=== PATIENT | female | born 1990 | race Caucasian/White ===

== ENCOUNTER 2017-01-08 10:12 | Emergency (ER) | payer OTHER ==
[2017-01-08 10:24] VITALS: O2SAT 96
[2017-01-08] MEDS ORDERED: TYLENOL 325 MG PO STA (10:40)
[2017-01-08] MEDS ORDERED: TYLENOL 325 MG ONE (10:42)
--- NOTE | 2017-01-08 10:47 | ERPHSYRPT ---
- History of Present Illness Time Seen by Provider: 01/08/17 10:30 Historian: patient Exam Limitations: clinical condition Patient Subjective Stated Complaint: abd pain Triage Nursing Assessment: states was at work getting a resident up and 'i dropped pt and twisted when i did' incident happened at 0930 and at 1000 when she got back into her car she had sudden onset of pain to rt lower quad and down into her groin when she twists. no bruising or swelling noted. 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 DENIES FALL, NUMBNESS, TINGLING OR WEAKNESS IN EXTREMITIES. DENIES VAGINAL BLEEDING, PELVIC CRAMPING. Timing/Duration: today Activities at Onset: other (LIFTING RESIDENT) Quality: throbbing Abdominal Pain Onset Location: RLQ, generalized abdomen, other (FLANK) Severity of Pain-Max: moderate Severity of Pain-Current: moderate Modifying Factors: Improves With: position, other (BENDING, TWISTING) Previous symptoms: no prior history Allergies/Adverse Reactions: amoxicillin [Amoxicillin] Allergy (Mild, Verified 01/08/17 10:24) Home Medications: Vits W-Ca,Fe,FA(<1Mg) [] 1 each PO DAILY 01/08/17 [History] Hx Tetanus, Diphtheria Vaccination/Date Given: Yes Hx Influenza Vaccination/Date Given: No Hx Pneumococcal Vaccination/Date Given: No Immunizations Up to Date: Yes - Review of Systems Constitutional: No Fever, No Chills Eyes: No Symptoms Ears, Nose, & Throat: No Symptoms Respiratory: No Symptoms, No Cough, No Dyspnea Cardiac: No Symptoms, No Chest Pain, No Edema, No Syncope Abdominal/Gastrointestinal: Abdominal Pain, No Nausea, No Vomiting, No Diarrhea Genitourinary Symptoms: Flank Pain, No Dysuria Musculoskeletal: Back Pain, Other (RIGHT FLANK PAIN, RIGHT GROIN PAIN), No Neck Pain Skin: No Rash Neurological: No Dizziness, No Focal Weakness, No Sensory Changes Psychological: No Symptoms Endocrine: No Symptoms All Other Systems: Reviewed and Negative - Past Medical History Pertinent Past Medical History: No Neurological History: Migraines - Past Surgical History Past Surgical History: Yes Female Surgical History: Other Other Surgical History: d/c - Social History Smoking Status: Never smoker Exposure to second hand smoke: No Drug Use: none Patient Lives Alone: No Significant Family History: MOTHER - Female History Hx Now: No Expected Date of Delivery: 08/07/17 - Nursing Vital Signs Nursing Vital Signs: Initial Vital Signs Temperature 98.4 F Temperature Source Oral Pulse Rate 98 Respiratory Rate 18 Blood Pressure [Right Arm] 149/83 Pain Intensity 7 - Physical Exam General Appearance: no apparent distress, alert Eye Exam: PERRL/EOMI, eyes nml inspection Neck Exam: normal inspection, non-tender, supple, full range of motion Respiratory Exam: normal breath sounds, lungs clear, No respiratory distress Cardiovascular Exam: regular rate/rhythm, normal heart sounds Gastrointestinal/Abdomen Exam: soft, normal bowel sounds, tenderness (RIGHT LOWER QUAD TENDERNESS, NO GUARDING OR REBOUND TENDERNESS), No mass Back Exam: normal inspection, normal range of motion, No CVA tenderness, No vertebral tenderness Extremity Exam: normal inspection, normal range of motion, pelvis stable Neurologic Exam: alert, oriented x 3, cooperative, normal mood/affect, nml cerebellar function, sensation nml, No motor deficits Skin Exam: normal color, warm, dry SpO2 Interpretation: normal SpO2: 96 Oxygen Delivery: Room Air - Radiology Ultrasound Exam OB Ultrasound: discussed w/radiologist (ABDOMINAL ULTRASOUND C/W INTRAUTERINE 10 WEEKS, 6 DAYS HEART RATE 160,) Ordered Tests: Active Orders 24 hr Category Date Time Status Clean Catch Urine Specimen STAT Care 01/08/17 10:39 Ordered OB <14 WKS 1ST GESTATION [US] Stat Exams 01/08/17 10:40 Ordered UA Stat Lab 01/08/17 10:39 Uncollected Medication Summary Discontinued Medications Generic Name Dose Route Start Last Admin Trade Name Freq PRN Reason Stop Dose Admin Acetaminophen 650 mg 01/08/17 10:40 Tylenol 325 Mg PO 01/08/17 10:41 STAT STA - Progress Progress Note: 01/08/17 10:55 PATIENT ADMINISTERED TYLENOL 650MG ORALLY Counseled pt/family regarding: lab results, diagnosis, need for follow-up, rad results - Departure Time of Disposition: 11:08 Departure Disposition: Home Clinical Impression: ACUTE ABDOMINAL WALL STRAIN, Condition: Stable Critical Care Time: No Additional Instructions: TYLENOL EVERY 4 HOURS FOR PAIN NEEDED. FOLLOWUP WITH YOUR FAMILY PHYSICIAN IN 1 WEEK. WORK RESTRICTION, NO LIFTING FOR 1 WEEK FOR 1 WEEK.
[2017-01-08 10:48] LABS: Collection Type CLEAN CATCH
[2017-01-08 10:49] LABS: COMPLETE URINE MICROSCOPIC? YES
[2017-01-08 10:54] LABS: Bacteria FEW /HPF (NEGATIVE); Epithelial Cells MODERATE /HPF (FEW); Mucus SLIGHT /HPF (NEGATIVE); WBC 0-2 /HPF (0-5)
[2017-01-08 11:12] VITALS: BP 126/88; PULSE 75
--- NOTE | 2017-01-08 11:16 | XRAY ---
Indication: Pain after heavy lifting. Two-dimensional transabdominal early OB ultrasound performed. Comparison: December 13, 2016. Again there is a single intrauterine gestational sac with presence of a single pole measuring today 9 weeks 6 days. heart rate 171 bpm. No abnormal subchorionic fluid collection. Left and right ovaries unremarkable. No suspicious adnexal mass or free fluid. Impression: Again single viable intrauterine today measuring 9 weeks 6 days. No new/acute findings.
== END 2017-01-08 11:20 | disposition home or self-care (01) ==
LOC: ED 10:12
DX: O26.891 Other specified pregnancy related conditions, first trimester (principal); R10.9 Unspecified abdominal pain; X50.0XXA Overexertion from strenuous movement or load, initial encounter; Y93.F2 Activity, caregiving, lifting; Y92.129 Unspecified place in nursing home as the place of occurrence of the external cause
CPT/HCPCS: 76801; 81000; 99284; A9270-GY

== ENCOUNTER → 2017-05-09 | Emergency (ER) | payer OTHER ==
[~2017-05-09] MED LIST: ACELLULAR PERTUSSIS VACCINE IM ONE; DIPHTHERIA TOXOID IM ONE; TETANUS TOXOID IM ONE
== END ==
LOC: ED 13:23
PROC: 0HQNXZZ Repair Left Foot Skin, External Approach (ICD-10-PCS; principal; 2017-05-09)
DX: S91.111A Laceration without foreign body of right great toe without damage to nail, initial encounter (principal); W26.8XXA Contact with other sharp object(s), not elsewhere classified, initial encounter; Z33.1 Pregnant state, incidental; Z3A.28 28 weeks gestation of pregnancy
CPT/HCPCS: 12001; 90471; 90715; 99283

== ENCOUNTER 2018-06-30 20:00 | Emergency (ER) | payer OTHER ==
[2018-06-30] MEDS ORDERED: Zofran 4 MG/2 ML VIAL IV STA (20:17)
[2018-06-30] MEDS ORDERED: Sodium Chloride 0.9% 1000 ML 1,000 ML IV STA (20:17)
[2018-06-30] MEDS ORDERED: TORAdol 30 mg Injection IV ONE (20:18)
--- NOTE | 2018-06-30 20:25 | ERPHSYRPT ---
- History of Present Illness Time Seen by Provider: 06/30/18 20:10 Source: patient Exam Limitations: no limitations Patient Subjective Stated Complaint: fever, headache, backache, N&V, both sides of neck feels "tight" Triage Nursing Assessment: Pt A&O x3, T 102.8, c/o of headache, backache, N&V, both sides of neck feel tight, denies sore throat, fever, rates pain 6/10, denies chest pain, no abdominal pain, pulses normal Physician History: Pt is c/o fever (104.5F) headaches, back pain, nausea, vomiting, started at 13: 00 PM today. She denies cough, SOB, chest pain, abd. pain, diarrhea, rashes, sore throat, other complaints. She took 650 mg Tylenol at 18:00 PM. Timing/Duration: today Fever Severity: severe Fever Therapy EXECUTIVE STAFF ASSISTANT: Acetaminophen Associated Symptoms: headache, nausea/vomiting Allergies/Adverse Reactions: amoxicillin [Amoxicillin] Allergy (Mild, Verified 06/30/18 20:13) Hx Tetanus, Diphtheria Vaccination/Date Given: Yes Hx Influenza Vaccination/Date Given: No Hx Pneumococcal Vaccination/Date Given: No - Review of Systems Constitutional: Fever, Chills Eyes: No Symptoms Ears, Nose, & Throat: No Symptoms Abdominal/Gastrointestinal: Nausea, Vomiting Neurological: Headache All Other Systems: Reviewed and Negative - Past Medical History Pertinent Past Medical History: Yes Neurological History: Migraines ENT History: No Pertinent History Cardiac History: No Pertinent History Respiratory History: No Pertinent History Endocrine Medical History: No Pertinent History Musculoskeletal History: No Pertinent History GI Medical History: GERD History: No Pertinent History Psycho-Social History: No Pertinent History Female Reproductive Disorders: Menstrual Problems, Other - Past Surgical History Past Surgical History: Yes Neuro Surgical History: No Pertinent History Cardiac: No Pertinent History Respiratory: No Pertinent History Gastrointestinal: No Pertinent History Genitourinary: No Pertinent History Musculoskeletal: No Pertinent History Female Surgical History: Tubal Ligation, Other Other Surgical History: d/c - Social History Smoking Status: Current some day smoker How long have you smoked: couple yea Exposure to second hand smoke: No Drug Use: none Patient Lives Alone: No Significant Family History: MOTHER - Female History Hx Now: No (tubal) - Nursing Vital Signs Nursing Vital Signs: Initial Vital Signs Temperature 102.8 F 10/01/18 20:05 Pulse Rate 112 H 06/30/18 20:05 Blood Pressure 120/72 06/30/18 20:05 O2 Sat by Pulse Oximetry 96 06/30/18 20:05 Pain Scale Pain Intensity 6 - Physical Exam General Appearance: no apparent distress Eye Exam: PERRL/EOMI, eyes nml inspection ENT Exam: normal ENT inspection, TMs normal, pharynx normal Neck Exam: normal inspection, non-tender, supple, trachea midline, No JVD, No lymphadenopathy (R), No lymphadenopathy (L) Respiratory Exam: normal breath sounds, chest non-tender, lungs clear, no respiratory distress, no accessory muscle use Cardiovascular/Chest Exam: normal heart sounds, regular rate/rhythm, normal peripheral pulses, No murmur, No edema, No JVD Gastrointestinal/Abdominal Exam: soft, non tender, no distention, no mass, no guarding, no ecchymosis, no organomegaly Extremity Exam: non-tender, no calf tenderness, no pedal edema Neurologic Exam: alert, oriented x 3, cooperative, normal mood/affect Skin Exam: normal color, warm, dry, No rash, No petechiae Lymphatic: No adenopathy SpO2 Interpretation: normal SpO2: 96 Oxygen Delivery: Room Air - Course Nursing assessment & vital signs reviewed: Yes - Radiology Exams Chest X-ray Interpretation: Interpreted by me, Negative Ordered Tests: Active Orders 24 hr Category Date Time Status IV Insertion STAT Care 06/30/18 20:15 Active Pulse Oximetry (ED) STAT Care 06/30/18 20:15 Active CHEST 2 VIEWS (PA AND LAT) Stat Exams 06/30/18 20:16 Taken BLOOD CULTURE Stat Lab 06/30/18 20:40 Received CBC W DIFF Stat Lab 06/30/18 20:15 Completed CMP Stat Lab 06/30/18 20:15 Completed CULTURE,URINE Stat Lab 06/30/18 21:31 Ordered HCG,QUALITATIVE URINE Stat Lab 06/30/18 21:31 Completed Lactic Acid Stat Lab 06/30/18 20:18 Completed Cocke Screen Stat Lab 06/30/18 20:15 Completed PROTIME WITH INR Stat Lab 06/30/18 20:15 Completed PTT Stat Lab 06/30/18 20:15 Completed Urinalysis with Microscopy Stat Lab 06/30/18 21:31 Completed Medication Summary Discontinued Medications Generic Name Dose Route Start Last Admin Trade Name Freq PRN Reason Stop Dose Admin Fentanyl Citrate 50 mcg 06/30/18 21:44 06/30/18 21:50 Sublimaze 100 Mcg/2 Ml IV 06/30/18 21:45 50 mcg STAT ONE Administration Fentanyl Citrate Confirm 06/30/18 21:47 Sublimaze 100 Mcg/2 Ml Administered 06/30/18 21:48 Dose 100 mcg .ROUTE .STK-MED ONE Sodium Chloride 1,000 mls @ 999 mls/hr 06/30/18 20:17 06/30/18 22:11 Sodium Chloride 0.9% 1000 Ml IV 06/30/18 21:17 Infused .Q1H1M STA Infusion Sodium Chloride Confirm 06/30/18 20:27 Sodium Chloride 0.9% 1000 Ml Administered 06/30/18 20:28 Dose 1,000 mls @ ud .ROUTE .STK-MED ONE Levofloxacin/Dextrose 750 mg in 150 mls @ 100 mls/hr 06/30/18 22:00 06/30/18 22:11 Levofloxacin 750mg/150ml D5w IV 06/30/18 23:29 100 mls/hr STAT STA 100 mls/hr Administration Levofloxacin/Dextrose Confirm 06/30/18 22:02 Levofloxacin 750mg/150ml D5w Administered 06/30/18 22:03 Dose 750 mg in 150 mls @ ud IV .STK-MED ONE Ketorolac Tromethamine 30 mg 06/30/18 20:18 06/30/18 20:34 Toradol 30 Mg Injection IV 06/30/18 20:19 30 mg STAT ONE Administration Ketorolac Tromethamine Confirm 06/30/18 20:27 Toradol 30 Mg Injection Administered 06/30/18 20:28 Dose 30 mg .ROUTE .STK-MED ONE Ondansetron HCl 4 mg 06/30/18 20:17 06/30/18 20:34 Zofran 4 Mg/2 Ml Vial IV 06/30/18:18 4 mg STAT STA Administration Ondansetron HCl Confirm 06/30/18 20:27 Zofran 4 Mg/2 Ml Vial Administered 06/30/18 20:28 Dose 4 mg .ROUTE .STK-MED ONE Lab/Rad Data: Laboratory Result Diagrams 06/30/18 20:15 06/30/18 20:15 Laboratory Results 06/30/18 06/30/18 06/30/18 Range/Units 21:31 21:31 20:40 WBC (4.0-10.5) K/mm3 RBC (4.1-5.4) M/mm3 Hgb (12.0-16.0) gm/dl Hct (35-47) % MCV (78-100) fl MCH (26-32) pg MCHC (32-36) g/dl RDW (11.5-14.0) % Plt Count (150-450) K/mm3 MPV (6-9.5) fl Gran % (36.0-66.0) % Eos # (Auto) (0-0.5) Absolute Lymphs (auto) (1.0-4.6) Absolute Monos (auto) (0.0-1.3) Lymphocytes % (24.0-44.0) % Monocytes % (0.0-12.0) % Eosinophils % (0.00-5.0) % Basophils % (0.0-0.4) % Absolute Granulocytes (1.4-6.9) Basophils # (0-0.4) PT (9.95-12.35) SECONDS INR (0.8-3.0) APTT (25.3-37.0) SECONDS Sodium (137-145) mmol/L Potassium (3.5-5.1) mmol/L Chloride (98-107) mmol/L Carbon Dioxide (22-30) mmol/L Anion Gap (5-15) MEQ/L BUN (7-17) mg/dL Creatinine (0.52-1.04) mg/dL Estimated GFR ML/MIN Glucose (74-106) mg/dL Lactic Acid (0.4-2.0) Calcium (8.4-10.2) mg/dL Total Bilirubin (0.2-1.3) mg/dL AST (14-36) U/L ALT (0-35) U/L Alkaline Phosphatase (38-126) U/L Serum Total Protein (6.3-8.2) g/dL Albumin (3.5-5.0) g/dL Urine Color STRAW (YELLOW) Urine Appearance CLEAR (CLEAR) Urine pH 5.0 (5-6) Ur Specific [place] 1.006 (1.005-1.025) Urine Protein NEGATIVE (Negative) Urine Ketones NEGATIVE (NEGATIVE) Urine Blood NEGATIVE (0-5) Etienne/ul Urine Nitrite NEGATIVE (NEGATIVE) Urine Bilirubin NEGATIVE (NEGATIVE) Urine Urobilinogen NEGATIVE (0-1) mg/dL Ur Leukocyte Esterase TRACE (NEGATIVE) Urine WBC (Auto) 0-2 (0-5) /HPF Urine RBC (Auto) 0-2 (0-2) /HPF U Epithel Cells (Auto) RARE (FEW) /HPF Urine Bacteria (Auto) RARE (NEGATIVE) /HPF Urine Mucus (Auto) SLIGHT (NEGATIVE) /HPF Urine Glucose NEGATIVE (NEGATIVE) mg/dL Urine HCG, Qual NEGATIVE (Negative) Monoscreen (Negative) Influenza Type A Ag NEGATIVE (NEGATIVE) Influenza Type B Ag NEGATIVE (NEGATIVE) RSV (PCR) NEGATIVE (Negative) Group A Strep Antibody NEGATIVE (NEGATIVE) 06/30/18 06/30/18 06/30/18 Range/Units 20:18 20:15 20:15 WBC (4.0-10.5) K/mm3 RBC (4.1-5.4) M/mm3 Hgb (12.0-16.0) gm/dl Hct (35-47) % MCV (78-100) fl MCH (26-32) pg MCHC (32-36) g/dl RDW (11.5-14.0) % Plt Count (150-450) K/mm3 MPV (6-9.5) fl Gran % (36.0-66.0) % Eos # (Auto) (0-0.5) Absolute Lymphs (auto) (1.0-4.6) Absolute Monos (auto) (0.0-1.3) Lymphocytes % (24.0-44.0) % Monocytes % (0.0-12.0) % Eosinophils % (0.00-5.0) % Basophils % (0.0-0.4) % Absolute Granulocytes (1.4-6.9) Basophils # (0-0.4) PT 13.6 H (9.95-12.35) SECONDS INR 1.17 (0.8-3.0) APTT 29.6 (25.3-37.0) SECONDS Sodium (137-145) mmol/L Potassium (3.5-5.1) mmol/L Chloride (98-107) mmol/L Carbon Dioxide (22-30) mmol/L Anion Gap (5-15) MEQ/L BUN (7-17) mg/dL Creatinine (0.52-1.04) mg/dL Estimated GFR ML/MIN Glucose (74-106) mg/dL Lactic Acid 1.1 (0.4-2.0) Calcium (8.4-10.2) mg/dL Total Bilirubin (0.2-1.3) mg/dL AST (14-36) U/L ALT (0-35) U/L Alkaline Phosphatase (38-126) U/L Serum Total Protein (6.3-8.2) g/dL Albumin (3.5-5.0) g/dL Urine Color (YELLOW) Urine Appearance (CLEAR) Urine pH (5-6) Ur Specific [place] (1.005-1.025) Urine Protein (Negative) Urine Ketones (NEGATIVE) Urine Blood (0-5) Etienne/ul Urine Nitrite (NEGATIVE) Urine Bilirubin (NEGATIVE) Urine Urobilinogen (0-1) mg/dL Ur Leukocyte Esterase (NEGATIVE) Urine WBC (Auto) (0-5) /HPF Urine RBC (Auto) (0-2) /HPF U Epithel Cells (Auto) (FEW) /HPF Urine Bacteria (Auto) (NEGATIVE) /HPF Urine Mucus (Auto) (NEGATIVE) /HPF Urine Glucose (NEGATIVE) mg/dL Urine HCG, Qual (Negative) Monoscreen NEGATIVE (Negative) Influenza Type A Ag (NEGATIVE) Influenza Type B Ag (NEGATIVE) RSV (PCR) (Negative) Group A Strep Antibody (NEGATIVE) 06/30/18 06/30/18 Range/Units 20:15 20:15 WBC 8.8 (4.0-10.5) K/mm3 RBC 5.08 (4.1-5.4) M/mm3 Hgb 15.2 (12.0-16.0) gm/dl Hct 45.5 (35-47) % MCV 89.6 (78-100) fl MCH 29.9 (26-32) pg MCHC 33.4 (32-36) g/dl RDW 13.9 (11.5-14.0) % Plt Count 326 (150-450) K/mm3 MPV 10.4 H (6-9.5) fl Gran % 84.8 H (36.0-66.0) % Eos # (Auto) 0.09 (0-0.5) Absolute Lymphs (auto) 0.70 L (1.0-4.6) Absolute Monos (auto) 0.55 (0.0-1.3) Lymphocytes % 7.9 L (24.0-44.0) % Monocytes % 6.2 (0.0-12.0) % Eosinophils % 1.0 (0.00-5.0) % Basophils % 0.1 (0.0-0.4) % Absolute Granulocytes 7.48 H (1.4-6.9) Basophils # 0.01 (0-0.4) PT (9.95-12.35) SECONDS INR (0.8-3.0) APTT (25.3-37.0) SECONDS Sodium 143 (137-145) mmol/L Potassium 3.8 (3.5-5.1) mmol/L Chloride 105 (98-107) mmol/L Carbon Dioxide 22 (22-30) mmol/L Anion Gap 19.4 H (5-15) MEQ/L BUN 10 (7-17) mg/dL Creatinine 0.64 (0.52-1.04) mg/dL Estimated GFR > 60.0 ML/MIN Glucose 115 H (74-106) mg/dL Lactic Acid (0.4-2.0) Calcium 9.3 (8.4-10.2) mg/dL Total Bilirubin 0.30 (0.2-1.3) mg/dL AST 15 (14-36) U/L ALT 15 (0-35) U/L Alkaline Phosphatase 97 (38-126) U/L Serum Total Protein 7.8 (6.3-8.2) g/dL Albumin 4.9 (3.5-5.0) g/dL Urine Color (YELLOW) Urine Appearance (CLEAR) Urine pH (5-6) Ur Specific [place] (1.005-1.025) Urine Protein (Negative) Urine Ketones (NEGATIVE) Urine Blood (0-5) Etienne/ul Urine Nitrite (NEGATIVE) Urine Bilirubin (NEGATIVE) Urine Urobilinogen (0-1) mg/dL Ur Leukocyte Esterase (NEGATIVE) Urine WBC (Auto) (0-5) /HPF Urine RBC (Auto) (0-2) /HPF U Epithel Cells (Auto) (FEW) /HPF Urine Bacteria (Auto) (NEGATIVE) /HPF Urine Mucus (Auto) (NEGATIVE) /HPF Urine Glucose (NEGATIVE) mg/dL Urine HCG, Qual (Negative) Monoscreen (Negative) Influenza Type A Ag (NEGATIVE) Influenza Type B Ag (NEGATIVE) RSV (PCR) (Negative) Group A Strep Antibody (NEGATIVE) - Progress Progress: improved Progress Note: 06/30/18 23:49 Pt states her headache improved, she is afebrile, stable, no sign of severe pain or distress. I discussed our results with her, talked in details about the possible diagnosis, including viral infection, sinusitis, and the unlikely but possible meningitis, also discussed all risks and benefits of a spinal tap, and the importance of diagnosing a possible early meningitis in a timely fashion, she understood, but refused spinal tap after careful consideration. She is fully alert and oriented, mentally competent. She was given iv saline, Toradol, Fentanyl and 750 mg Levaquin, she is being discharged in good condition, to continue Levaquin 750 mg PO daily, and follow up with her physician in 2-3 days , or return if no improvement in 2 days or severe headaches, vomiting, fever> 103 F. 06/30/18 23:55 Counseled pt/family regarding: lab results, diagnosis, need for follow-up, rad results - Departure Time of Disposition: 23:53 Departure Disposition: Home Clinical Impression: Fever Qualifiers: Fever type: unspecified Qualified Code(s): R50.9 - Fever, unspecified Sinusitis Qualifiers: Sinusitis location: unspecified location Chronicity: acute Recurrence: not specified as recurrent Qualified Code(s): J01.90 - Acute sinusitis, unspecified Condition: Stable Critical Care Time: No Referrals: EDILSON ALBRECHT [Primary Care Provider] - Instructions: Fever, Adult (DC), Sinusitis, Adult (DC), Sinus Headache (DC) Additional Instructions: Rest x 2-3 days, drink plenty of fluids, and follow up with your physician in 2- 3 days, return if severe headaches, vomiting, fever> 103 F, or lethargy! Forms: Work/School Release Form Prescriptions: Levofloxacin [Levaquin] 1 tab PO DAILY 10 Days #10 tablet
[2018-06-30] MEDS ORDERED: TORAdol 30 mg Injection ONE (20:27)
[2018-06-30] MEDS ORDERED: Sodium Chloride 0.9% 1000 ML 1,000 ML ONE (20:27)
[2018-06-30] MEDS ORDERED: Zofran 4 MG/2 ML VIAL ONE (20:27)
[2018-06-30 20:33] LABS: BASOPHIL % 0.1 % (0.0-0.4); Basophil (Absolute #) 0.01 (0-0.4); Eosinophil (Absolute #) 0.09 (0-0.5); Granulocyte Absolute (ANC) 7.48 (1.4-6.9); Granulocytes % 84.8 % (36.0-66.0); Hematocrit 45.5 % (35-47); Hemoglobin 15.2 gm/dl (12.0-16.0); Lymphocytes % 7.9 % (24.0-44.0); Mean Cell Volume 89.6 fl (78-100); Mean Corpuscular Hemoglobin 29.9 pg (26-32); Mean Corpuscular Hgb Concent. 33.4 g/dl (32-36); Mean Platelet Volume 10.4 fl (6-9.5); Monocyte (Absolute #) 0.55 (0.0-1.3); Monocytes % 6.2 % (0.0-12.0); Platelet Count 326 K/mm3 (150-450); Red Blood Count 5.08 M/mm3 (4.1-5.4); Red Cell Distribution Width 13.9 % (11.5-14.0); White Blood Count 8.8 K/mm3 (4.0-10.5)
[2018-06-30 20:51] LABS: INR 1.17 (0.8-3.0)
[2018-06-30 20:54] LABS: PTT 29.6 SECONDS (25.3-37.0)
[2018-06-30 20:56] LABS: ALBUMIN 4.9 g/dL (3.5-5.0); ALKALINE PHOSPHATASE 97 U/L (38-126); ANION GAP 19.4 MEQ/L (5-15); BLOOD UREA NITROGEN 10 mg/dL (7-17); CHLORIDE 105 mmol/L (98-107); Calcium 9.3 mg/dL (8.4-10.2); Carbon Dioxide 22 mmol/L (22-30); Creatinine 1 0.64 mg/dL (0.52-1.04); Glucose 115 mg/dL (74-106); Potassium 3.8 mmol/L (3.5-5.1); SGOT/AST 15 U/L (14-36); SGPT/ALT 15 U/L (0-35); SODIUM 143 mmol/L (137-145); Total Protein 7.8 g/dL (6.3-8.2)
[2018-06-30 21:24] LABS: INFLUENZA A NEGATIVE (NEGATIVE); INFLUENZA B NEGATIVE (NEGATIVE); RESPIRATORY SYNCTIAL VIRUS NEGATIVE (Negative)
[2018-06-30] MEDS ORDERED: SUBLIMAZE 100 MCG/2 ML IV ONE (21:44)
[2018-06-30 21:45] LABS: Appearance CLEAR (CLEAR); Bilirubin NEGATIVE (NEGATIVE); Blood NEGATIVE Ery/ul (0-5); Glucose NEGATIVE (NEGATIVE); Ketones NEGATIVE (NEGATIVE); Leukocyte Esterase TRACE (NEGATIVE); Nitrite NEGATIVE (NEGATIVE); Protein,Urine Dip NEGATIVE (Negative); Specific Gravity 1.006 (1.005-1.025); Urobilinogen NEGATIVE mg/dL (0-1)
[2018-06-30] MEDS ORDERED: SUBLIMAZE 100 MCG/2 ML ONE (21:47)
[2018-06-30] MEDS ORDERED: LEVOFLOXACIN 750MG/150ML D5W 750 MG/150 ML BAG IV STA (22:00)
[2018-06-30] MEDS ORDERED: LEVOFLOXACIN 750MG/150ML D5W 750 MG/150 ML BAG IV ONE (22:02)
[2018-06-30 23:52] VITALS: BP 98/57; PULSE 89
[2018-06-30 23:54] VITALS: O2SAT 96
--- NOTE | 2018-07-01 08:33 | XRAY ---
Indication: Fever. Comparison: None PA/lateral chest demonstrates normal heart, lungs, and bony thorax with a few incidental calcified granulomas.
== END 2018-07-01 00:13 | disposition home or self-care (01) ==
LOC: ED 20:00
DX: R50.9 Fever, unspecified (principal); R51 Headache; J32.9 Chronic sinusitis, unspecified; M54.9 Dorsalgia, unspecified; R11.2 Nausea with vomiting, unspecified
CPT/HCPCS: 36000; 36415; 71046; 80053; 81001; 83605; 84703; 85025; 85610; 85730; 86308; 87040; 87086; 87631; 87651; 96360; 96361; 96365; 96374; 96375; 99284; J1885; J1956; J2405; J3010

== ENCOUNTER 2019-10-16 07:24 | Emergency (ER) | payer OTHER ==
[2019-10-16 08:26] VITALS: O2SAT 98
--- NOTE | 2019-10-16 08:44 | ERPHSYRPT ---
- History of Present Illness Time Seen by Provider: 10/16/19 07:35 Source: patient Exam Limitations: no limitations Patient Subjective Stated Complaint: cough, fever, body aches since yesterday. this am took tylenol. also having some nausea with vomiting this am. Triage Nursing Assessment: ambulated to room per self. skin w/d, color normal, resp nonlabored. occasional dry cough noted. vomiting small amts. Physician History: patient is 28 yo F with c/o fever body aches cough and SARAH.Hx of migraines but this is different Timing/Duration: hour(s) (24) Cough Quality/Degree: dry cough Possible Cause: illness exposure Modifying Factors: Improves With: nothing Associated Symptoms: fever, chills, chest pain/soreness, cough, facial pain, headache International travel in last 2 weeks: No Allergies/Adverse Reactions: amoxicillin [Amoxicillin] Allergy (Mild, Verified 10/16/19 07:32) metoclopramide [From Reglan] Allergy (Verified 10/16/19 07:32) Hx Tetanus, Diphtheria Vaccination/Date Given: No Hx Influenza Vaccination/Date Given: Yes Hx Pneumococcal Vaccination/Date Given: No - Review of Systems Constitutional: Fever, Chills, Fatigue, Lethargy, Malaise, Night Sweats, Weakness Eyes: No Symptoms Ears, Nose, & Throat: Nose Congestion Respiratory: Cough, Dyspnea Cardiac: No Symptoms Abdominal/Gastrointestinal: No Abdominal Pain, No Nausea, No Vomiting Genitourinary Symptoms: No Symptoms Musculoskeletal: Arthralgias, Myalgias Skin: No Symptoms Neurological: Headache Psychological: No Symptoms Endocrine: No Symptoms - Past Medical History Pertinent Past Medical History: Yes Neurological History: Migraines ENT History: No Pertinent History Cardiac History: No Pertinent History Respiratory History: No Pertinent History Endocrine Medical History: No Pertinent History Musculoskeletal History: No Pertinent History GI Medical History: GERD History: No Pertinent History Psycho-Social History: No Pertinent History Female Reproductive Disorders: Menstrual Problems, Other - Past Surgical History Past Surgical History: Yes Neuro Surgical History: No Pertinent History Cardiac: No Pertinent History Respiratory: No Pertinent History Gastrointestinal: No Pertinent History Genitourinary: No Pertinent History Musculoskeletal: No Pertinent History Female Surgical History: Tubal Ligation, Other Other Surgical History: d/c - Social History Smoking Status: Never smoker How long have you smoked: couple yea Exposure to second hand smoke: No Drug Use: none Patient Lives Alone: No Significant Family History: MOTHER - Female History Hx Now: No (ablasion) - Nursing Vital Signs Nursing Vital Signs: Initial Vital Signs Temperature 100.4 F 10/16/19 07:25 Pulse Rate 111 H 10/16/19 07:25 Respiratory Rate 18 10/16/19 07:25 Blood Pressure 97/70 10/16/19 07:25 O2 Sat by Pulse Oximetry 96 10/16/19 07:25 Pain Scale Pain Intensity 4 - Physical Exam General Appearance: mild distress, alert Eye Exam: PERRL/EOMI, eyes nml inspection Ears, Nose, Throat Exam: normal ENT inspection, TMs normal, pharynx normal, moist mucous membranes Neck Exam: normal inspection, non-tender, supple, full range of motion Respiratory Exam: normal breath sounds, lungs clear, No respiratory distress Cardiovascular Exam: regular rate/rhythm, normal heart sounds Gastrointestinal/Abdomen Exam: soft, No tenderness Back Exam: normal inspection, No CVA tenderness, No vertebral tenderness Extremity Exam: normal inspection, normal range of motion Neurologic Exam: alert, oriented x 3, cooperative, normal mood/affect, sensation nml, No motor deficits Skin Exam: normal color, warm, dry, No rash Lymphatic Exam: No adenopathy SpO2: 98 - Course Nursing assessment & vital signs reviewed: Yes Lab/Rad Data: Laboratory Results 10/16/19 Range/Units Unknown Influenza Type A Ag POSITIVE (NEGATIVE) Influenza Type B Ag NEGATIVE (NEGATIVE) RSV (PCR) NEGATIVE (Negative) - Progress Progress: unchanged Air Movement: good Blood Culture(s) Obtained: No Antibiotics given: No - Departure Departure Disposition: Home Clinical Impression: Influenza A Condition: Fair Critical Care Time: No Referrals: EDILSON ALBRECHT [Primary Care Provider] - Instructions: Cough, Adult (DC) Prescriptions: Oseltamivir 75 mg [Tamiflu 75MG Capsule] 75 mg PO BID #10 cap
[2019-10-16 09:12] LABS: INFLUENZA B NEGATIVE (NEGATIVE); RESPIRATORY SYNCTIAL VIRUS NEGATIVE (Negative)
[2019-10-16 09:13] LABS: INFLUENZA A POSITIVE (NEGATIVE)
[2019-10-16 09:17] VITALS: BP 109/73; PULSE 104
== END 2019-10-16 09:27 | disposition home or self-care (01) ==
LOC: ED 07:24
DX: J09.X2 Influenza due to identified novel influenza A virus with other respiratory manifestations (principal)
CPT/HCPCS: 87631; 99283

== ENCOUNTER 2020-07-07 10:16 | Emergency (ER) | payer OTHER ==
[2020-07-07] MEDS ORDERED: Sodium Chloride 0.9% 1000 ML 1,000 ML IV STA (10:32)
[2020-07-07] MEDS ORDERED: TORAdol 30 mg Injection IV ONE (10:32)
[2020-07-07] MEDS ORDERED: Flomax 0.4 MG PO STA (10:34)
--- NOTE | 2020-07-07 10:44 | ERPHSYRPT ---
- History of Present Illness Time Seen by Provider: 07/07/20 10:30 Historian: patient Exam Limitations: no limitations Patient Subjective Stated Complaint: pt seen at this facility 06/28 for flank pain, found to have right ureter calculus with partial obstruction and UTI, states she was treated with antibiotics and pain medication, reports that her pain continues and at follow up was diagnosed with a yeast infection. pt reports she also is having her first period since her ablation 3 years ago. pt pain is to the right flank, radiating to the umbilicus and shoulder. pt reports pain with urination as well. Triage Nursing Assessment: pt is aox3, pupils perrl, afebrile, resps easy and non labored, cap refill < 3 seconds, radial pulses strong and equal, pt abd soft, non tender, bowel sound present, normoactive x4. tenderness with palpation to the right flank, pt skin pink warm dry. Physician History: Patient is a 29-year-old female presents to our ED with complaints of flank pain. Patient was in our ED on June 28. At that time she was diagnosed with a right 2 mm ureterolithiasis. Patient was discharged home on ciprofloxacin and Perry. Patient followed up with her primary care physician. At that time patient was prescribed Diflucan as she felt a yeast infection from the antibiotics. Patient is currently on Diflucan. Patient completed her course of ciprofloxacin. Patient states her flank pain is similar to her pain on June 28. Patient has been using a urine strainer but has not identified the stone. It is likely that patient's pain is a continuation of the kidney stone diagnosed on . Pain described as an ache that radiates from her right flank down into her groin area. She is experiencing right costovertebral angle tenderness. No associated trauma. No fever. No nausea or vomiting. No diarrhea. Patient denies the possibility of . Symptoms are constant. Symptoms are moderate in intensity. No specific worsening or improving factors. Patient is otherwise generally healthy. She voices no other complaints or concerns at this time. Timing/Duration: day(s) (Excellently 10 days.) Activities at Onset: none Quality: aching Abdominal Pain Onset Location: flank (Lying) Severity of Pain-Max: moderate Severity of Pain-Current: mild Modifying Factors: Improves With: nothing Associated Symptoms: back (Right CVA tenderness.), No diaphoresis, No diarrhea, No fever/chills, No fatigue, No loss of appetite, No nausea, No neck pain, No shortness of breath, No syncope, No vomiting, No weakness Allergies/Adverse Reactions: amoxicillin [Amoxicillin] Allergy (Mild, Verified 07/07/20 10:38) metoclopramide [From Reglan] Allergy (Verified 07/07/20 10:38) Home Medications: Hydroxyzine HCl 25 mg [Atarax 25 mg] 1 tab PO DAILY PRN 06/28/20 [History] Fluconazole [Diflucan ] 150 mg PO UD 07/07/20 [History] Hx Tetanus, Diphtheria Vaccination/Date Given: Yes Hx Influenza Vaccination/Date Given: Yes Hx Pneumococcal Vaccination/Date Given: No Immunizations Up to Date: Yes Travel Risk - International Travel Have you traveled outside of the country in past 3 weeks: No - Coronavirus Screening Are you exhibiting any of the following symptoms?: No Close contact with a COVID-19 positive Pt in past 14-21 Days: No - Review of Systems Constitutional: No Symptoms, No Fever, No Chills Eyes: No Symptoms Ears, Nose, & Throat: No Symptoms Respiratory: No Symptoms, No Cough, No Dyspnea Cardiac: No Symptoms, No Chest Pain, No Edema, No Syncope Abdominal/Gastrointestinal: No Symptoms, No Abdominal Pain, No Nausea, No Vomiting, No Diarrhea Genitourinary Symptoms: No Symptoms, No Dysuria Musculoskeletal: No Symptoms, No Back Pain, No Neck Pain Skin: No Symptoms, No Rash Neurological: No Symptoms, No Dizziness, No Focal Weakness, No Sensory Changes Psychological: No Symptoms Endocrine: No Symptoms Hematologic/Lymphatic: No Symptoms Immunological/Allergic: No Symptoms All Other Systems: Reviewed and Negative - Past Medical History Pertinent Past Medical History: Yes Neurological History: Migraines ENT History: No Pertinent History Cardiac History: No Pertinent History Respiratory History: No Pertinent History Endocrine Medical History: No Pertinent History Musculoskeletal History: No Pertinent History GI Medical History: GERD History: No Pertinent History Psycho-Social History: No Pertinent History Female Reproductive Disorders: Menstrual Problems, Other - Past Surgical History Past Surgical History: Yes Neuro Surgical History: No Pertinent History Cardiac: No Pertinent History Respiratory: No Pertinent History Gastrointestinal: No Pertinent History Genitourinary: No Pertinent History Musculoskeletal: No Pertinent History Female Surgical History: Tubal Ligation, Other Other Surgical History: d/c - Social History Smoking Status: Former smoker How long have you smoked: couple yea Exposure to second hand smoke: No Drug Use: none Patient Lives Alone: No Significant Family History: MOTHER - Female History Hx Last Menstrual Period: 2017/ Hx Now: No - Nursing Vital Signs Nursing Vital Signs: Initial Vital Signs Temperature 98 F 07/07/20 10:20 Pulse Rate 83 07/07/20 10:20 Respiratory Rate 18 07/07/20 10:20 Blood Pressure 129/81 07/07/20 10:20 O2 Sat by Pulse Oximetry 98 07/07/20 10:20 Pain Scale Pain Intensity 4 - Physical Exam General Appearance: no apparent distress, alert Eye Exam: PERRL/EOMI, eyes nml inspection Ears, Nose, Throat Exam: normal ENT inspection, pharynx normal, moist mucous membranes Neck Exam: normal inspection, non-tender, supple, full range of motion Respiratory Exam: normal breath sounds, lungs clear, No respiratory distress Cardiovascular Exam: regular rate/rhythm, normal heart sounds Gastrointestinal/Abdomen Exam: soft, other (Right flank tenderness. Right CVA tenderness.), No tenderness, No distention, No mass, No ecchymosis, No pulsatile mass, No organomegaly, No splenomegaly Back Exam: normal inspection, normal range of motion, No CVA tenderness, No vertebral tenderness Extremity Exam: normal inspection, normal range of motion, pelvis stable Neurologic Exam: alert, oriented x 3, cooperative, normal mood/affect, nml cerebellar function, sensation nml, No motor deficits Skin Exam: normal color, warm, dry Lymphatic Exam: No adenopathy SpO2 Interpretation: normal SpO2: 98 O2 Delivery: Room Air - Radiology Ultrasound Exam Pelvis Ultrasound: tele radiology report (Negative transabdominal pelvic sonogram. Specifically no sonographic abnormalities explaining CT findings are faint ovary calcifications.) Ordered Tests: Active Orders 24 hr Category Date Time Status IV Insertion STAT Care 07/07/20 10:32 Active ABDOMEN AND PELVIS W/0 CONTRAS [CT] Stat Exams 07/07/20 10:32 Completed PELVIC [US] Stat Exams 07/07/20 13:09 Completed CBC W DIFF Stat Lab 07/07/20 10:45 Completed CMP Stat Lab 07/07/20 10:45 Completed HCG,QUALITATIVE URINE Stat Lab 07/07/20 10:40 Completed LIPASE Stat Lab 07/07/20 10:45 Completed TROPONIN Q3H Lab 07/07/20 11:00 Completed TROPONIN Q3H Lab 07/07/20 16:15 Ordered TROPONIN Q3H Lab 07/07/20 19:15 Ordered TROPONIN Q3H Lab 07/07/20 22:15 Ordered TROPONIN Q3H Lab 07/08/20 01:15 Ordered UA W/RFX UR CULTURE Stat Lab 07/07/20 10:40 Completed Medication Summary Discontinued Medications Generic Name Dose Route Start Last Admin Trade Name Ernie PRN Reason Stop Dose Admin Sodium Chloride 1,000 mls @ 999 mls/hr 07/07/20 10:32 07/07/20 12:07 Sodium Chloride 0.9% 1000 Ml IV 07/07/20 11:32 Infused .Q1H1M STA Infusion Sodium Chloride Confirm 07/07/20 10:52 Sodium Chloride 0.9% 1000 Ml Administered 07/07/20 10:53 Dose 1,000 mls @ ud .ROUTE .STK-MED ONE Ketorolac Tromethamine 30 mg 07/07/20 10:32 07/07/20 10:56 Toradol 30 Mg Injection IV 07/07/20 10:33 30 mg STAT ONE Administration Ketorolac Tromethamine Confirm 07/07/20 10:52 Toradol 30 Mg Injection Administered 07/07/20 10:53 Dose 30 mg .ROUTE .STK-MED ONE Tamsulosin HCl 0.4 mg 07/07/20 10:34 07/07/20 10:56 Flomax 0.4 Mg PO 07/07/20 10:35 0.4 mg ONCE STA Administration Tamsulosin HCl Confirm 07/07/20 10:52 Flomax 0.4 Mg Administered 07/07/20 10:53 Dose 0.4 mg .ROUTE .STK-MED ONE Lab/Rad Data: Laboratory Result Diagrams 07/07/20 10:45 07/07/20 10:45 Laboratory Results 07/07/20 07/07/20 07/07/20 Range/Units 11:00 10:45 10:45 WBC 6.8 (4.0-10.5) K/mm3 RBC 4.67 (4.1-5.4) M/mm3 Hgb 14.2 (12.0-16.0) gm/dl Hct 43.6 (35-47) % MCV 93.4 (78-100) fl MCH 30.4 (26-32) pg MCHC 32.6 (32-36) g/dl RDW 12.7 (11.5-14.0) % Plt Count 316 (150-450) K/mm3 MPV 9.4 (7.5-11.0) fl Gran % 60.7 (36.0-66.0) % Eos # (Auto) 0.15 (0-0.5) Absolute Lymphs (auto) 2.03 (1.0-4.6) Absolute Monos (auto) 0.46 (0.0-1.3) Lymphocytes % 30.0 (24.0-44.0) % Monocytes % 6.8 (0.0-12.0) % Eosinophils % 2.2 (0.00-5.0) % Basophils % 0.3 (0.0-0.4) % Absolute Granulocytes 4.11 (1.4-6.9) Basophils # 0.02 (0-0.4) Sodium 138 (137-145) mmol/L Potassium 4.1 (3.5-5.1) mmol/L Chloride 107 (98-107) mmol/L Carbon Dioxide 24 (22-30) mmol/L Anion Gap 11.5 (5-15) MEQ/L BUN 15 (7-17) mg/dL Creatinine 0.67 (0.52-1.04) mg/dL Estimated GFR > 60.0 ML/MIN Glucose 101 (74-106) mg/dL Calcium 9.2 (8.4-10.2) mg/dL Total Bilirubin 0.50 (0.2-1.3) mg/dL AST 18 (14-36) U/L ALT 20 (0-35) U/L Alkaline Phosphatase 76 (38-126) U/L Troponin I < 0.012 (0.000-0.034) ng/mL Serum Total Protein 7.5 (6.3-8.2) g/dL Albumin 4.5 (3.5-5.0) g/dL Lipase 24 (23-300) U/L Urine Color (YELLOW) Urine Appearance (CLEAR) Urine pH (5-6) Ur Specific [place] (1.005-1.025) Urine Protein (Negative) Urine Ketones (NEGATIVE) Urine Blood (0-5) Etienne/ul Urine Nitrite (NEGATIVE) Urine Bilirubin (NEGATIVE) Urine Urobilinogen (0-1) mg/dL Ur Leukocyte Esterase (NEGATIVE) Urine WBC (Auto) (0-5) /HPF Urine RBC (Auto) (0-2) /HPF U Epithel Cells (Auto) (FEW) /HPF Urine Bacteria (Auto) (NEGATIVE) /HPF Urine Mucus (Auto) (NEGATIVE) /HPF Urine Culture Reflexed (NO) Urine Glucose (NEGATIVE) mg/dL Urine HCG, Qual (Negative) 07/07/20 07/07/20 Range/Units 10:40 10:40 WBC (4.0-10.5) K/mm3 RBC (4.1-5.4) M/mm3 Hgb (12.0-16.0) gm/dl Hct (35-47) % MCV (78-100) fl MCH (26-32) pg MCHC (32-36) g/dl RDW (11.5-14.0) % Plt Count (150-450) K/mm3 MPV (7.5-11.0) fl Gran % (36.0-66.0) % Eos # (Auto) (0-0.5) Absolute Lymphs (auto) (1.0-4.6) Absolute Monos (auto) (0.0-1.3) Lymphocytes % (24.0-44.0) % Monocytes % (0.0-12.0) % Eosinophils % (0.00-5.0) % Basophils % (0.0-0.4) % Absolute Granulocytes (1.4-6.9) Basophils # (0-0.4) Sodium (137-145) mmol/L Potassium (3.5-5.1) mmol/L Chloride (98-107) mmol/L Carbon Dioxide (22-30) mmol/L Anion Gap (5-15) MEQ/L BUN (7-17) mg/dL Creatinine (0.52-1.04) mg/dL Estimated GFR ML/MIN Glucose (74-106) mg/dL Calcium (8.4-10.2) mg/dL Total Bilirubin (0.2-1.3) mg/dL AST (14-36) U/L ALT (0-35) U/L Alkaline Phosphatase (38-126) U/L Troponin I (0.000-0.034) ng/mL Serum Total Protein (6.3-8.2) g/dL Albumin (3.5-5.0) g/dL Lipase (23-300) U/L Urine Color YELLOW (YELLOW) Urine Appearance SLIGHTLY CLOUDY (CLEAR) Urine pH 6.0 (5-6) Ur Specific [place] 1.023 (1.005-1.025) Urine Protein NEGATIVE (Negative) Urine Ketones NEGATIVE (NEGATIVE) Urine Blood SMALL (0-5) Etienne/ul Urine Nitrite NEGATIVE (NEGATIVE) Urine Bilirubin NEGATIVE (NEGATIVE) Urine Urobilinogen NEGATIVE (0-1) mg/dL Ur Leukocyte Esterase NEGATIVE (NEGATIVE) Urine WBC (Auto) 3-5 (0-5) /HPF Urine RBC (Auto) NONE (0-2) /HPF U Epithel Cells (Auto) RARE (FEW) /HPF Urine Bacteria (Auto) RARE (NEGATIVE) /HPF Urine Mucus (Auto) SLIGHT (NEGATIVE) /HPF Urine Culture Reflexed NO (NO) Urine Glucose NEGATIVE (NEGATIVE) mg/dL Urine HCG, Qual NEGATIVE (Negative) - Progress Progress: improved Progress Note: 07/07/20 14:50 Patient reassessed. Pain improved. Patient ready for discharge. The previously identified calcification thought to be a kidney stone is actually b elieved to be a over calcification. No kidney stone identified today. No ureterolithiasis. Pelvic ultrasound essentially negative. UA within normal limits. There is fecal stasis observed. Patient advised a trial of [id number] laxative. Toradol prescription transmitted to patient's pharm acy for pain control. Patient agrees to follow-up with her primary care doctor within 48 hours for reevaluation. Counseled pt/family regarding: lab results, diagnosis, need for follow-up, rad results - Departure Departure Disposition: Home Clinical Impression: Flank pain, Hiatal hernia, Calcification of ovary, Constipation, Splenomegaly Condition: Stable Critical Care Time: No Referrals: EDILSON ALBRECHT [ACTIVE STAFF] - Instructions: Flank Pain Additional Instructions: Discharge/Care Plan CATARINAIAN CABRAL was seen on 07/07/20 in the Emergency Room. The patient was counseled regarding Diagnosis,Lab results, Imaging studies, need for follow up and when to return to the Emergency Room. Prescriptions given: Discharge Note I have spoken with the patient and/or caregivers. I have explained the patient's condition, diagnosis and treatment plan based on the information available to me at this time. I have answered the patient's and/or caregiver's questions and addressed any concerns. The patient and/or caregivers have as good understanding of the patient's diagnosis, condition and treatment plan as can be expected at this point. The vital signs have been stable. The patient's condition is stable and appropriate for discharge from the emergency department. The patient will pursue further outpatient evaluation with the primary care physician or other designated or consulting physician as outlined in the discharge instructions. The patient and/or caregivers are agreeable to this plan of care and follow-up instructions have been explained in detail. The patient and/or caregivers have received these instruction. The patient/and or caregivers are aware that any significant change in condition or worsening of symptoms should prompt an immediate return to this or the closest emergency department or call 911. Prescriptions: Ketorolac Tromethamine [Toradol] 10 mg PO TID #15 tablet
[2020-07-07] MEDS ORDERED: TORAdol 30 mg Injection ONE (10:52)
[2020-07-07] MEDS ORDERED: Sodium Chloride 0.9% 1000 ML 1,000 ML ONE (10:52)
[2020-07-07] MEDS ORDERED: Flomax 0.4 MG ONE (10:52)
[2020-07-07 10:55] LABS: Absolute Neutrophil Ct (ANC) 4.11 (1.4-6.9); BASOPHIL % 0.3 % (0.0-0.4); Basophil (Absolute #) 0.02 (0-0.4); Eosinophil % 2.2 % (0.00-5.0); Eosinophil (Absolute #) 0.15 (0-0.5); Hematocrit 43.6 % (35-47); Hemoglobin 14.2 gm/dl (12.0-16.0); Lymphocyte (Absolute #) 2.03 (1.0-4.6); Mean Cell Volume 93.4 fl (78-100); Mean Corpuscular Hemoglobin 30.4 pg (26-32); Mean Corpuscular Hgb Concent. 32.6 g/dl (32-36); Mean Platelet Volume 9.4 fl (7.5-11.0); Monocyte (Absolute #) 0.46 (0.0-1.3); Monocytes % 6.8 % (0.0-12.0); Neutrophil % 60.7 % (36.0-66.0); Platelet Count 316 K/mm3 (150-450); Red Blood Count 4.67 M/mm3 (4.1-5.4); Red Cell Distribution Width 12.7 % (11.5-14.0); White Blood Count 6.8 K/mm3 (4.0-10.5)
[2020-07-07 11:13] LABS: ALBUMIN 4.5 g/dL (3.5-5.0); ALKALINE PHOSPHATASE 76 U/L (38-126); ANION GAP 11.5 MEQ/L (5-15); BLOOD UREA NITROGEN 15 mg/dL (7-17); CHLORIDE 107 mmol/L (98-107); Calcium 9.2 mg/dL (8.4-10.2); Carbon Dioxide 24 mmol/L (22-30); Creatinine 1 0.67 mg/dL (0.52-1.04); EST GLOMERULAR FILTRATION RATE > 60.0 ML/MIN; Glucose 101 mg/dL (74-106); LIPASE 24 U/L (23-300); Potassium 4.1 mmol/L (3.5-5.1); SGOT/AST 18 U/L (14-36); SGPT/ALT 20 U/L (0-35); SODIUM 138 mmol/L (137-145); Total Protein 7.5 g/dL (6.3-8.2)
[2020-07-07 11:39] LABS: Appearance SLIGHTLY CLOUDY (CLEAR); Bacteria RARE /HPF (NEGATIVE); Bilirubin NEGATIVE (NEGATIVE); Blood SMALL Ery/ul (0-5); Epithelial Cells RARE /HPF (FEW); Glucose NEGATIVE (NEGATIVE); Ketones NEGATIVE (NEGATIVE); Leukocyte Esterase NEGATIVE (NEGATIVE); Mucus SLIGHT /HPF (NEGATIVE); Nitrite NEGATIVE (NEGATIVE); Protein,Urine Dip NEGATIVE (Negative); Specific Gravity 1.023 (1.005-1.025); Urobilinogen NEGATIVE mg/dL (0-1)
--- NOTE | 2020-07-07 12:43 | XRAY ---
Indication: Right flank pain and hematuria. Multiple contiguous axial images obtained through the abdomen and pelvis without contrast as ordered. Comparison: June 28, 2020. Lung bases again demonstrates minimal dependent atelectasis without infiltrate or effusion. Heart is not enlarged. New small hiatal hernia. Noncontrasted stomach and bowel loops remain nonobstructed again was normal appendix and mild diffuse scattered colonic fecal debris. Previous reported right pelvic punctate calcification thought to be in the distal ureter is reidentified unchanged and today appears associated with the right ovary. Actually both ovaries again demonstrates faint calcifications outlining the ovaries. No hydronephrosis, hydroureter, or perinephric fluid. Spleen remains enlarged measuring 14.3 cm. Remaining liver, gallbladder, pancreas, spleen, adrenal glands, kidneys, ureters, bladder, uterus, and aorta appear unremarkable for noncontrast exam. Impression: 1. Previous reported right ureter punctate calcification is actually ovary in location. Both ovaries demonstrate faint rim of calcifications better evaluated with pelvic sonogram. 2. New small hiatal hernia. 3. Again incidental mild diffuse fecal stasis and splenomegaly.
[2020-07-07 14:16] VITALS: BP 114/69; PULSE 78
--- NOTE | 2020-07-07 14:21 | XRAY ---
Indication: Right flank pain and hematuria. Abnormal ovaries on same-day CT. Two-dimensional transabdominal pelvic sonogram performed. Comparison: None Uterus anteverted measuring 7.5 x 3.7 x 5.4 cm. Myometrium appears homogeneous. Endometrial stripe measures 1.8 mm. No endometrial cavity mass or fluid collection. Right ovary measures 2.9 x 2.0 x 3.2 cm and the left measures 3.3 x 2.1 x 3.9 cm. Normal perfusion bilaterally. No suspicious adnexal mass or free fluid. Impression: Negative transabdominal pelvic sonogram. Specifically no sonographic abnormalities explaining CT findings for faint ovary calcifications.
[2020-07-07 14:41] VITALS: O2SAT 98
== END 2020-07-07 14:56 | disposition home or self-care (01) ==
LOC: ED 10:16
DX: R10.9 Unspecified abdominal pain (principal); K44.9 Diaphragmatic hernia without obstruction or gangrene; N83.8 Other noninflammatory disorders of ovary, fallopian tube and broad ligament; K59.00 Constipation, unspecified; R16.1 Splenomegaly, not elsewhere classified; Z79.899 Other long term (current) drug therapy
CPT/HCPCS: 36000; 36415; 74176; 76856; 80053; 81001; 83690; 84484; 84703; 85025; 96360; 96374; 99284; J1885; A9270-GY

== ENCOUNTER 2020-08-09 08:17 | Emergency (ER) | payer OTHER ==
--- NOTE | 2020-08-09 08:45 | ERPHSYRPT ---
- History of Present Illness Time Seen by Provider: 08/09/20 08:30 Historian: patient Exam Limitations: no limitations Patient Subjective Stated Complaint: Chest pain Triage Nursing Assessment: Patient ambulated back to ED and transferred self to bed. Patient A+O X 3. Patient's skin pink, warm and dry. Patient complains of chest pain underneath lois breasts that goes into back constant sharp pain 7/10 that started 20 minutes ago. Patient had recent gallbladder surgery on 07/27/20. Lungs clear a/p lois. Heart tones audible. No edema noted. Patient complains of Nausea. Physician History: Patient is a 29-year-old female presents to our ED for evaluation of lower chest pain. Chest pain started approximately 20 minutes prior to arrival. Pain described as a sharp sensation rated 7 out of 10. Pain tends to radiate towards her back. Pain is associated with nausea. No vomiting. No trauma. No fever. Symptoms are mild to moderate in intensity. No specific worsening or improving factors. Patient advises that she had cholecystectomy performed on 07/27/2020. No reported complications. Patient is a former smoker. Patient voices no other complaints or concerns at this time. Timing/Duration: today Activities at Onset: none Quality: sharpness Location: substernal (Lower substernal) Chest Pain Radiation: back Severity of Pain-Max: moderate Severity of Pain-Current: moderate Modifying Factors: Improves With: nothing Associated Symptoms: nausea, No vomiting, No heartburn, No abdominal pain, No shortness of breath, No hurts to breathe, No chills, No dizziness, No back pain Prior Chest Pain/Cardiac Workup: no prior chest pain Nitro Today/Relief: no nitro taken today Aspirin Treatment Today: no aspirin today Allergies/Adverse Reactions: amoxicillin [Amoxicillin] Allergy (Mild, Verified 08/09/20 08:26) metoclopramide [From Reglan] Allergy (Verified 08/09/20 08:26) Home Medications: Hydroxyzine HCl 25 mg [Atarax 25 mg] 1 tab PO DAILY PRN 06/28/20 [History] Ondansetron ODT 4 MG [Zofran Odt 4 mg] 1 tab SL Q4H PRN PRN 08/09/20 [Hi story] Hx Tetanus, Diphtheria Vaccination/Date Given: Yes Hx Influenza Vaccination/Date Given: No Hx Pneumococcal Vaccination/Date Given: No Immunizations Up to Date: Yes Travel Risk - International Travel Have you traveled outside of the country in past 3 weeks: No - Coronavirus Screening Are you exhibiting any of the following symptoms?: No Close contact with a COVID-19 positive Pt in past 14-21 Days: No - Review of Systems Constitutional: No Symptoms, No Fever, No Chills Eyes: No Symptoms Ears, Nose, & Throat: No Symptoms Respiratory: No Symptoms, No Cough, No Dyspnea Cardiac: No Symptoms, No Chest Pain, No Edema, No Syncope Abdominal/Gastrointestinal: No Symptoms, No Abdominal Pain, No Nausea, No Vomiting, No Diarrhea Genitourinary Symptoms: No Symptoms, No Dysuria Musculoskeletal: No Symptoms, No Back Pain, No Neck Pain Skin: No Symptoms, No Rash Neurological: No Symptoms, No Dizziness, No Focal Weakness, No Sensory Changes Psychological: No Symptoms Endocrine: No Symptoms Hematologic/Lymphatic: No Symptoms Immunological/Allergic: No Symptoms All Other Systems: Reviewed and Negative - Past Medical History Pertinent Past Medical History: Yes Neurological History: Migraines ENT History: No Pertinent History Cardiac History: No Pertinent History Respiratory History: No Pertinent History Endocrine Medical History: No Pertinent History Musculoskeletal History: No Pertinent History GI Medical History: GERD History: No Pertinent History Psycho-Social History: No Pertinent History Female Reproductive Disorders: Menstrual Problems, Other - Past Surgical History Past Surgical History: Yes Neuro Surgical History: No Pertinent History Cardiac: No Pertinent History Respiratory: No Pertinent History Gastrointestinal: Cholecystectomy Genitourinary: No Pertinent History Musculoskeletal: No Pertinent History Female Surgical History: Tubal Ligation, Other Other Surgical History: d/c - Social History Smoking Status: Former smoker How long have you smoked: couple yea Exposure to second hand smoke: Yes Drug Use: none Patient Lives Alone: No Significant Family History: MOTHER - Female History Hx Last Menstrual Period: couple days ago Hx Now: No - Nursing Vital Signs Nursing Vital Signs: Initial Vital Signs Temperature 98.3 F 08/09/20 08:20 Pulse Rate 82 08/09/20 08:20 Respiratory Rate 18 08/09/20 08:20 Blood Pressure 124/83 08/09/20 08:20 O2 Sat by Pulse Oximetry 100 08/09/20 08:20 Pain Scale Pain Intensity 6 - Physical Exam General Appearance: no apparent distress, alert Eye Exam: PERRL/EOMI, eyes nml inspection Ears, Nose, Throat Exam: normal ENT inspection, moist mucous membranes Neck Exam: normal inspection, non-tender, supple, full range of motion Respiratory Exam: normal breath sounds, lungs clear, No respiratory distress Cardiovascular Exam: regular rate/rhythm, normal heart sounds Gastrointestinal/Abdomen Exam: soft, No tenderness, No mass, No guarding, No pulsatile mass, No rebound Back Exam: normal inspection, No CVA tenderness, No vertebral tenderness Extremity Exam: normal inspection, normal range of motion Neurologic Exam: alert, oriented x 3, cooperative, normal mood/affect, sensation nml, No motor deficits Skin Exam: normal color, warm, dry SpO2 Interpretation: normal SpO2: 100 O2 Delivery: Room Air - Course Nursing assessment & vital signs reviewed: Yes EKG Interpreted by Me: RATE (72), Sinus Rhythm, NORMAL AXIS, NORMAL INTERVALS - Radiology Exams Chest X-ray Interpretation: Teleradiologist Report (Chest x-ray negative.) Ordered Tests: Active Orders 24 hr Category Date Time Status Picker Machine Operator STAT Care 08/09/20 08:38 Active EKG-ER Only STAT Care 08/09/20 08:37 Active IV Insertion STAT Care 08/09/20 08:37 Active Pulse Oximetry (ED) STAT Care 08/09/20 08:37 Active CHEST 1 VIEW (PORTABLE) Stat Exams 08/09/20 08:37 Completed CBC W DIFF Stat Lab 08/09/20 08:25 Completed CMP Stat Lab 08/09/20 08:25 Completed D-DIMER QUANTITATIVE Stat Lab 08/09/20 08:25 Completed LIPASE Stat Lab 08/09/20 08:25 Completed NT PRO BNP Stat Lab 08/09/20 08:25 Completed TROPONIN Q3H Lab 08/09/20 08:25 Completed TROPONIN Q3H Lab 08/09/20 10:30 Completed TROPONIN Q3H Lab 08/09/20 14:45 Ordered TROPONIN Q3H Lab 08/09/20 17:45 Ordered TROPONIN Q3H Lab 08/09/20 20:45 Ordered Medication Summary Discontinued Medications Generic Name Dose Route Start Last Admin Trade Name Freq PRN Reason Stop Dose Admin Aspirin 324 mg 08/09/20 08:52 08/09/20 08:58 Baby Aspirin 81 Mg Chew PO 08/09/20 08:53 324 mg STAT ONE Administration Morphine Sulfate 2 mg 08/09/20 08:52 08/09/20 08:58 Morphine Sulfate 2 Mg Inj IV 08/09/20 08:53 2 mg STAT ONE Administration Lab/Rad Data: Laboratory Result Diagrams 08/09/20 08:25 08/09/20 08:25 Laboratory Results 08/09/20 08/09/20 08/09/20 Range/Units 10:30 08:25 08:25 WBC (4.0-10.5) K/mm3 RBC (4.1-5.4) M/mm3 Hgb (12.0-16.0) gm/dl Hct (35-47) % MCV (78-100) fl MCH (26-32) pg MCHC (32-36) g/dl RDW (11.5-14.0) % Plt Count (150-450) K/mm3 MPV (7.5-11.0) fl Gran % (36.0-66.0) % Eos # (Auto) (0-0.5) Absolute Lymphs (auto) (1.0-4.6) Absolute Monos (auto) (0.0-1.3) Lymphocytes % (24.0-44.0) % Monocytes % (0.0-12.0) % Eosinophils % (0.00-5.0) % Basophils % (0.0-0.4) % Absolute Granulocytes (1.4-6.9) Basophils # (0-0.4) D-Dimer (215-500) ng/mL Sodium (137-145) mmol/L Potassium (3.5-5.1) mmol/L Chloride (98-107) mmol/L Carbon Dioxide (22-30) mmol/L Anion Gap (5-15) MEQ/L BUN (7-17) mg/dL Creatinine (0.52-1.04) mg/dL Estimated GFR ML/MIN Glucose (74-106) mg/dL Calcium (8.4-10.2) mg/dL Total Bilirubin (0.2-1.3) mg/dL AST (14-36) U/L ALT (0-35) U/L Alkaline Phosphatase (38-126) U/L Troponin I < 0.012 < 0.012 (0.000-0.034) ng/mL NT-Pro-B Natriuret Pep (0-450) pg/mL Serum Total Protein (6.3-8.2) g/dL Albumin (3.5-5.0) g/dL Lipase 39 (23-300) U/L 08/09/20 08/09/20 08/09/20 Range/Units 08:25 08:25 08:25 WBC 8.9 (4.0-10.5) K/mm3 RBC 4.65 (4.1-5.4) M/mm3 Hgb 14.1 (12.0-16.0) gm/dl Hct 42.9 (35-47) % MCV 92.3 (78-100) fl MCH 30.3 (26-32) pg MCHC 32.9 (32-36) g/dl RDW 12.6 (11.5-14.0) % Plt Count 349 (150-450) K/mm3 MPV 9.6 (7.5-11.0) fl Gran % 63.2 (36.0-66.0) % Eos # (Auto) 0.23 (0-0.5) Absolute Lymphs (auto) 2.49 (1.0-4.6) Absolute Monos (auto) 0.52 (0.0-1.3) Lymphocytes % 28.1 (24.0-44.0) % Monocytes % 5.9 (0.0-12.0) % Eosinophils % 2.6 (0.00-5.0) % Basophils % 0.2 (0.0-0.4) % Absolute Granulocytes 5.60 (1.4-6.9) Basophils # 0.02 (0-0.4) D-Dimer 455 (215-500) ng/mL Sodium 137 (137-145) mmol/L Potassium 4.2 (3.5-5.1) mmol/L Chloride 109 H (98-107) mmol/L Carbon Dioxide 20 L (22-30) mmol/L Anion Gap 12.5 (5-15) MEQ/L BUN 17 (7-17) mg/dL Creatinine 0.54 (0.52-1.04) mg/dL Estimated GFR > 60.0 ML/MIN Glucose 98 (74-106) mg/dL Calcium 9.4 (8.4-10.2) mg/dL Total Bilirubin 0.40 (0.2-1.3) mg/dL AST 23 (14-36) U/L ALT 24 (0-35) U/L Alkaline Phosphatase 80 (38-126) U/L Troponin I (0.000-0.034) ng/mL NT-Pro-B Natriuret Pep 31.8 (0-450) pg/mL Serum Total Protein 7.4 (6.3-8.2) g/dL Albumin 4.2 (3.5-5.0) g/dL Lipase (23-300) U/L - Progress Progress: improved Air Movement: good Progress Note: 08/09/20 11:23 Patient reassessed. She feels well. Vitals within normal limits. Troponin negative x2. Chest x-ray negative for acute pathology. No active pain at this time. Patient has a follow-up appointment scheduled for Saturday to see her general surgeon. Patient requesting discharge at this time. No indication for further work-up at this time. Will discharge per patient request. 08/09/20 11:25 Blood Culture(s) Obtained: No Antibiotics given: No Counseled pt/family regarding: lab results, diagnosis, need for follow-up, rad results - Departure Departure Disposition: Home Clinical Impression: Calcified granuloma of lung, Anterior chest wall pain Condition: Stable Critical Care Time: No Referrals: JUN JAMES [Primary Care Provider] - Additional Instructions: Discharge/Care Plan CATARINAIAN MISHA was seen on 08/09/20 in the Emergency Room. The patient was counseled regarding Diagnosis,Lab results, Imaging studies, need for follow up and when to return to the Emergency Room. Prescriptions given: Discharge Note I have spoken with the patient and/or caregivers. I have explained the patient's condition, diagnosis and treatment plan based on the information available to me at this time. I have answered the patient's and/or caregiver's questions and addressed any concerns. The patient and/or caregivers have as good understanding of the patient's diagnosis, condition and treatment plan as can be expected at this point. The vital signs have been stable. The patient's condition is stable and appropriate for discharge from the emergency department. The patient will pursue further outpatient evaluation with the primary care physician or other designated or consulting physician as outlined in the discharge instructions. The patient and/or caregivers are agreeable to this plan of care and follow-up instructions have been explained in detail. The patient and/or caregivers have received these instruction. The patient/and or caregivers are aware that any significant change in condition or worsening of symptoms should prompt an immediate return to this or the closest emergency department or call 911.
[2020-08-09 08:47] LABS: BASOPHIL % 0.2 % (0.0-0.4); Basophil (Absolute #) 0.02 (0-0.4); Eosinophil % 2.6 % (0.00-5.0); Eosinophil (Absolute #) 0.23 (0-0.5); Hematocrit 42.9 % (35-47); Hemoglobin 14.1 gm/dl (12.0-16.0); Lymphocyte (Absolute #) 2.49 (1.0-4.6); Lymphocytes % 28.1 % (24.0-44.0); Mean Cell Volume 92.3 fl (78-100); Mean Corpuscular Hemoglobin 30.3 pg (26-32); Mean Corpuscular Hgb Concent. 32.9 g/dl (32-36); Mean Platelet Volume 9.6 fl (7.5-11.0); Monocyte (Absolute #) 0.52 (0.0-1.3); Monocytes % 5.9 % (0.0-12.0); Neutrophil % 63.2 % (36.0-66.0); Platelet Count 349 K/mm3 (150-450); Red Blood Count 4.65 M/mm3 (4.1-5.4); Red Cell Distribution Width 12.6 % (11.5-14.0); White Blood Count 8.9 K/mm3 (4.0-10.5)
[2020-08-09] MEDS ORDERED: MORPHINE SULFATE 2 MG INJ IV ONE (08:52)
[2020-08-09] MEDS ORDERED: BABY ASPIRIN 81 MG CHEW PO ONE (08:52)
[2020-08-09 09:05] LABS: ALBUMIN 4.2 g/dL (3.5-5.0); ALKALINE PHOSPHATASE 80 U/L (38-126); ANION GAP 12.5 MEQ/L (5-15); BLOOD UREA NITROGEN 17 mg/dL (7-17); CHLORIDE 109 mmol/L (98-107); Calcium 9.4 mg/dL (8.4-10.2); Carbon Dioxide 20 mmol/L (22-30); Creatinine 1 0.54 mg/dL (0.52-1.04); EST GLOMERULAR FILTRATION RATE > 60.0 ML/MIN; Glucose 98 mg/dL (74-106); NT PRO BNP 31.8 pg/mL (0-450); Potassium 4.2 mmol/L (3.5-5.1); SGOT/AST 23 U/L (14-36); SGPT/ALT 24 U/L (0-35); SODIUM 137 mmol/L (137-145); Total Protein 7.4 g/dL (6.3-8.2)
--- NOTE | 2020-08-09 09:23 | XRAY ---
Indication: Chest pain. Comparison: October 20, 2019. Portable chest continues to demonstrate normal heart, lungs, and bony thorax with incidental calcified granulomas.
[2020-08-09 11:04] VITALS: BP 108/79; PULSE 56
[2020-08-09 11:23] VITALS: O2SAT 100
== END 2020-08-09 11:37 | disposition home or self-care (01) ==
LOC: ED 08:17
DX: J84.10 Pulmonary fibrosis, unspecified (principal); R07.89 Other chest pain; Z87.891 Personal history of nicotine dependence; R11.0 Nausea
CPT/HCPCS: 36000; 36415; 71045; 80053; 83690; 83880; 84484; 85025; 85379; 93005; 93041; 94760; 96374; 99284; J2270; A9270-GY

== ENCOUNTER 2020-11-03 09:46 | Observation (INO) | payer OTHER ==
[2020-12-27] MEDS ORDERED: CLINDAMYCIN-D5W 900 MG/50 ML*** 900 MG/50 ML BAG IV SCH (06:30)
[2020-12-27] MEDS: Lactated Ringers 1,000 ML IV SCH ×4 (06:38→21:00)
[2020-12-27] MEDS ORDERED: Lactated Ringers 1,000 ML IV ONE (07:08)
[2020-12-27] MEDS ORDERED: Sensorcaine 0.25% 10 ML ONE (07:08)
[2020-12-27 07:35] LABS: Hemoglobin 13.8 gm/dl (12.0-16.0); Mean Cell Volume 95.2 fl (78-100); Mean Corpuscular Hemoglobin 29.9 pg (26-32); Mean Corpuscular Hgb Concent. 31.4 g/dl (32-36); Mean Platelet Volume 10.4 fl (7.5-11.0); Platelet Count 263 K/mm3 (150-450); Red Blood Count 4.62 M/mm3 (4.1-5.4); Red Cell Distribution Width 12.8 % (11.5-14.0); White Blood Count 7.6 K/mm3 (4.0-10.5)
[2020-12-27 07:39] LABS: ALBUMIN 4.6 g/dL (3.5-5.0); ALKALINE PHOSPHATASE 66 U/L (38-126); ANION GAP 16.5 MEQ/L (5-15); BLOOD UREA NITROGEN 11 mg/dL (7-17); CHLORIDE 105 mmol/L (98-107); Calcium 9.5 mg/dL (8.4-10.2); Carbon Dioxide 22 mmol/L (22-30); Creatinine 1 0.61 mg/dL (0.52-1.04); EST GLOMERULAR FILTRATION RATE > 60.0 ML/MIN; Glucose 104 mg/dL (74-106); Potassium 3.9 mmol/L (3.5-5.1); SGOT/AST 18 U/L (14-36); SGPT/ALT 12 U/L (0-35); SODIUM 140 mmol/L (137-145); Total Protein 7.8 g/dL (6.3-8.2)
[2020-12-27 07:48] LABS: ABO TYPING A; RH TYPING POSITIVE
[2020-12-27 07:50] LABS: Antibody Screen NEGATIVE (NEGATIVE)
[2020-12-27] MEDS ORDERED: Transderm Scop 1.5MG Patch ONE (08:11)
[2020-12-27] MEDS ORDERED: Transderm Scop 1.5MG Patch TOP PRN (08:15)
[2020-12-27] MEDS ORDERED: SUBLIMAZE 100 MCG/2 ML IV ONE (09:10)
[2020-12-27] MEDS ORDERED: BRIDION 200MG/2ML IV ONE (09:10)
[2020-12-27] MEDS ORDERED: Decadron 4 MG INJ IV ONE (09:10)
[2020-12-27] MEDS ORDERED: Zemuron 100 MG/10 ML IJ ONE (09:10)
[2020-12-27] MEDS ORDERED: Xylocaine-Mpf 2% 5 Ml Vial IJ ONE (09:10)
[2020-12-27] MEDS ORDERED: Astramorph-Pf 5 MG/10 ML IJ ONE (09:10)
[2020-12-27] MEDS ORDERED: Versed 2 MG/2 ML Injection IV ONE (09:10)
[2020-12-27] MEDS ORDERED: Quelicin Fliptop 200 MG/10 ML IJ ONE (09:10)
[2020-12-27] MEDS ORDERED: PITRESSIN 20 UNITS*** 20 UNIT in Sodium Chloride 0.9% 100 ML IVPB 100 ML IV ONE (09:10)
[2020-12-27] MEDS ORDERED: TORAdol 30 mg Injection IJ ONE (09:10)
[2020-12-27 10:57] LABS: Appearance CLEAR (CLEAR); Bilirubin NEGATIVE (NEGATIVE); Blood NEGATIVE Ery/ul (0-5); Glucose NEGATIVE (NEGATIVE); Ketones NEGATIVE (NEGATIVE); Leukocyte Esterase NEGATIVE (NEGATIVE); Mucus SLIGHT /HPF (NEGATIVE); Nitrite NEGATIVE (NEGATIVE); Protein,Urine Dip NEGATIVE (Negative); Specific Gravity 1.008 (1.005-1.025); Urobilinogen NEGATIVE mg/dL (0-1)
[2020-12-27 10:58] LABS: Bacteria FEW /HPF (NEGATIVE); Epithelial Cells RARE /HPF (FEW); RBC 0-2 /HPF (0-2); WBC 0-2 /HPF (0-5)
[2020-12-27] MEDS ORDERED: Compazine 10 MG/2 ML IV PRN (12:14)
[2020-12-27] MEDS: Mylicon 80MG PO SCH ×2 (14:07→21:04)
[2020-12-27] MEDS: CLINDAMYCIN-D5W 900 MG/50 ML*** 900 MG/50 ML BAG IV SCH ×2 (14:07→21:04)
[2020-12-27] MEDS: Colace 100 MG PO SCH ×2 (14:07→21:05)
[2020-12-27] MEDS ORDERED: NON-FORMULARY ITEM (Cetirizine Hcl [Zyrtec] 5 MG) PO PRN (16:26)
[2020-12-27] MEDS ORDERED: GRANISETRON HCL 1 MG PO SCH (16:30)
[2020-12-27] MEDS ORDERED: CLARITIN 10 MG PO PRN (16:30)
[2020-12-27] MEDS ORDERED: Transderm Scop 1.5MG Patch TD SCH (16:30)
[2020-12-27] MEDS ORDERED: MEDICATION INTERVENTION PO SCH (16:45)
[2020-12-27] MEDS: PATIENT OWN MEDICATION PO SCH (17:23)
[2020-12-27] MEDS: ATARAX 25 MG PO PRN (17:27)
[2020-12-27 18:33] LABS: Hematocrit 39.4 % (35-47); Mean Cell Volume 91.2 fl (78-100); Mean Corpuscular Hemoglobin 30.1 pg (26-32); Mean Platelet Volume 9.6 fl (7.5-11.0); Platelet Count 324 K/mm3 (150-450); Red Blood Count 4.32 M/mm3 (4.1-5.4); Red Cell Distribution Width 12.6 % (11.5-14.0); White Blood Count 11.2 K/mm3 (4.0-10.5)
[2020-12-27] MEDS: Pepcid 20 MG PO SCH (21:05)
[2020-12-27] MEDS ORDERED: NON-FORMULARY ITEM (Famotidine [Pepcid] 40 MG) PO SCH (22:00)
[2020-12-27] MEDS: TORAdol 30 mg Injection IV PRN (22:25)
[2020-12-28] MEDS: ATARAX 25 MG PO PRN (02:46)
[2020-12-28] MEDS: Lactated Ringers 1,000 ML IV SCH (05:17)
[2020-12-28] MEDS: Mylicon 80MG PO SCH (05:17)
[2020-12-28 05:28] LABS: Absolute Neutrophil Ct (ANC) 8.85 (1.4-6.9); BASOPHIL % 0.1 % (0.0-0.4); Basophil (Absolute #) 0.01 (0-0.4); Eosinophil % 0.2 % (0.00-5.0); Eosinophil (Absolute #) 0.02 (0-0.5); Hematocrit 32.8 % (35-47); Hemoglobin 10.6 gm/dl (12.0-16.0); Lymphocytes % 15.7 % (24.0-44.0); Mean Cell Volume 92.7 fl (78-100); Mean Corpuscular Hemoglobin 29.9 pg (26-32); Mean Corpuscular Hgb Concent. 32.3 g/dl (32-36); Mean Platelet Volume 10.3 fl (7.5-11.0); Platelet Count 284 K/mm3 (150-450); Red Blood Count 3.54 M/mm3 (4.1-5.4); Red Cell Distribution Width 12.6 % (11.5-14.0); White Blood Count 11.5 K/mm3 (4.0-10.5)
[2020-12-28 05:53] LABS: ALBUMIN 3.2 g/dL (3.5-5.0); ALKALINE PHOSPHATASE 56 U/L (38-126); ANION GAP 13.7 MEQ/L (5-15); BLOOD UREA NITROGEN 9 mg/dL (7-17); CHLORIDE 104 mmol/L (98-107); Calcium 8.5 mg/dL (8.4-10.2); Carbon Dioxide 24 mmol/L (22-30); Creatinine 1 0.61 mg/dL (0.52-1.04); EST GLOMERULAR FILTRATION RATE > 60.0 ML/MIN; Glucose 137 mg/dL (74-106); Potassium 3.9 mmol/L (3.5-5.1); SGOT/AST 95 U/L (14-36); SGPT/ALT 162 U/L (0-35); SODIUM 138 mmol/L (137-145); Total Protein 5.6 g/dL (6.3-8.2)
[2020-12-28 07:20] VITALS: BP 91/56; PULSE 67; O2SAT 96
[2020-12-28] MEDS: PATIENT OWN MEDICATION PO SCH (07:58)
[2020-12-28] MEDS: TORAdol 30 mg Injection IV PRN (07:58)
[2020-12-28] MEDS ORDERED: ENOXAPARIN SODIUM SQ SCH (08:00)
--- NOTE | 2020-12-28 08:03 | PCM.NOTE ---
Date and Time: 12/28/20 0800 Subjective Assessment: pod 1 pt resting in bed and doing well able to tolerate diet and ambulating well. vss afebrile abd; soft incision c/d/intact ext; no clubbing cyanosis or edema hgb; 11.5 a/p sp lavh will dc home today should fu in office in 1 wk Objective Exam Wound Assessment: Skin/Wound Assessment Wound/Incision Assessment Start: 12/27/20 20:00 Text: Status: Active Freq: Q4H Protocol: Document 12/28/20 04:00 MS (Rec: 12/28/20 05:20 MS [id number]) Wound/Incision Assessment Abdomen Wound Assessment Shift Assessment Wound Type Incision Wound Stage Non Pressure Wound Drainage Amount None General Appearance Well Approximated,Asymptomatic ,Open to air Surrounding Tissue [place] Wound Photo Photo Taken No OBJECTIVE DATA Vital Signs: Vital Signs - 24 hr Temp Pulse Resp BP Pulse Ox 12/28/20 07:19 98.8 F 67 16 91/56 96 12/28/20 04:00 98.2 F 55 L 16 106/54 97 12/27/20 23:29 98.6 F 83 18 101/59 96 12/27/20 19:29 98.7 F 78 16 123/58 96 12/27/20 16:00 98.2 F 69 20 101/62 94 L 12/27/20 12:45 97.5 F 69 16 106/58 96 12/27/20 12:15 97.5 F 65 16 113/65 93 L 12/27/20 11:45 97.5 F 56 L 16 102/58 97 12/27/20 11:30 97.5 F 69 16 121/62 99 12/27/20 11:15 97.5 F 65 16 112/63 96 Pain Assessment - Last Documented Pain Intensity 0 Pain Scale Used 0-10 Pain Scale Intake and Output: Intake & Output 12/25/20 12/26/20 12/27/20 12/28/20 11:59 11:59 11:59 11:59 Intake Total 3032 Output Total 1300 Balance 1732 Weight 86 kg Lab Results: Lab Results-Last 24 Hours 12/27/20 12/27/20 12/28/20 Range/Units 10:47 18:20 04:20 WBC 11.2 H 11.5 H (4.0-10.5) K/mm3 RBC 4.32 3.54 L (4.1-5.4) M/mm3 Hgb 13.0 10.6 L (12.0-16.0) gm/dl Hct 39.4 32.8 L (35-47) % MCV 91.2 92.7 (78-100) fl MCH 30.1 29.9 (26-32) pg MCHC 33.0 32.3 (32-36) g/dl RDW 12.6 12.6 (11.5-14.0) % Plt Count 324 284 (150-450) K/mm3 MPV 9.6 10.3 (7.5-11.0) fl Gran % 77.0 H (36.0-66.0) % Eos # (Auto) 0.02 (0-0.5) Absolute Lymphs (auto) 1.80 (1.0-4.6) Absolute Monos (auto) 0.80 (0.0-1.3) Lymphocytes % 15.7 L (24.0-44.0) % Monocytes % 7.0 (0.0-12.0) % Eosinophils % 0.2 (0.00-5.0) % Basophils % 0.1 (0.0-0.4) % Absolute Granulocytes 8.85 H (1.4-6.9) Basophils # 0.01 (0-0.4) Sodium (137-145) mmol/L Potassium (3.5-5.1) mmol/L Chloride (98-107) mmol/L Carbon Dioxide (22-30) mmol/L Anion Gap (5-15) MEQ/L BUN (7-17) mg/dL Creatinine (0.52-1.04) mg/dL Estimated GFR ML/MIN Glucose (74-106) mg/dL Calcium (8.4-10.2) mg/dL Total Bilirubin (0.2-1.3) mg/dL AST (14-36) U/L ALT (0-35) U/L Alkaline Phosphatase (38-126) U/L Serum Total Protein (6.3-8.2) g/dL Albumin (3.5-5.0) g/dL Urine Color STRAW (YELLOW) Urine Appearance CLEAR (CLEAR) Urine pH 6.0 (5-6) Ur Specific [place] 1.008 (1.005-1.025) Urine Protein NEGATIVE (Negative) Urine Ketones NEGATIVE (NEGATIVE) Urine Blood NEGATIVE (0-5) Etienne/ul Urine Nitrite NEGATIVE (NEGATIVE) Urine Bilirubin NEGATIVE (NEGATIVE) Urine Urobilinogen NEGATIVE (0-1) mg/dL Ur Leukocyte Esterase NEGATIVE (NEGATIVE) Urine WBC (Auto) 0-2 (0-5) /HPF Urine RBC (Auto) 0-2 (0-2) /HPF U Epithel Cells (Auto) RARE (FEW) /HPF Urine Bacteria (Auto) FEW (NEGATIVE) /HPF Urine Mucus (Auto) SLIGHT (NEGATIVE) /HPF Urine Glucose NEGATIVE (NEGATIVE) mg/dL 12/28/20 Range/Units 04:20 WBC (4.0-10.5) K/mm3 RBC (4.1-5.4) M/mm3 Hgb (12.0-16.0) gm/dl Hct (35-47) % MCV (78-100) fl MCH (26-32) pg MCHC (32-36) g/dl RDW (11.5-14.0) % Plt Count (150-450) K/mm3 MPV (7.5-11.0) fl Gran % (36.0-66.0) % Eos # (Auto) (0-0.5) Absolute Lymphs (auto) (1.0-4.6) Absolute Monos (auto) (0.0-1.3) Lymphocytes % (24.0-44.0) % Monocytes % (0.0-12.0) % Eosinophils % (0.00-5.0) % Basophils % (0.0-0.4) % Absolute Granulocytes (1.4-6.9) Basophils # (0-0.4) Sodium 138 (137-145) mmol/L Potassium 3.9 (3.5-5.1) mmol/L Chloride 104 (98-107) mmol/L Carbon Dioxide 24 (22-30) mmol/L Anion Gap 13.7 (5-15) MEQ/L BUN 9 (7-17) mg/dL Creatinine 0.61 (0.52-1.04) mg/dL Estimated GFR > 60.0 ML/MIN Glucose 137 H (74-106) mg/dL Calcium 8.5 (8.4-10.2) mg/dL Total Bilirubin 0.20 (0.2-1.3) mg/dL AST 95 H (14-36) U/L ALT 162 H (0-35) U/L Alkaline Phosphatase 56 (38-126) U/L Serum Total Protein 5.6 L (6.3-8.2) g/dL Albumin 3.2 L (3.5-5.0) g/dL Urine Color (YELLOW) Urine Appearance (CLEAR) Urine pH (5-6) Ur Specific [place] (1.005-1.025) Urine Protein (Negative) Urine Ketones (NEGATIVE) Urine Blood (0-5) Etienne/ul Urine Nitrite (NEGATIVE) Urine Bilirubin (NEGATIVE) Urine Urobilinogen (0-1) mg/dL Ur Leukocyte Esterase (NEGATIVE) Urine WBC (Auto) (0-5) /HPF Urine RBC (Auto) (0-2) /HPF U Epithel Cells (Auto) (FEW) /HPF Urine Bacteria (Auto) (NEGATIVE) /HPF Urine Mucus (Auto) (NEGATIVE) /HPF Urine Glucose (NEGATIVE) mg/dL
--- NOTE | 2020-12-28 08:13 | PCM.DS ---
Discharge Summary Date of Admission: 12/27/20 06:19 Admitting Physician: CHAR PRADO DO Primary Care Provider: JUN JAMES Allergies Allergies amoxicillin [Amoxicillin] Allergy (Mild, Verified 12/27/20 07:13) medication interaction with granisetron prolonged QT interval metoclopramide [From Reglan] Allergy (Verified 12/27/20 07:15) Hives ondansetron [From Zofran] Adverse Reaction (Intermediate, Verified 12/27/20 07:15) not compatible with [facility] Summary - Hospital Course Hospital Course: pt admitted for undergoing laparoscopic vaginal hysterectomy and underwent procedure without complication on december 27. during postop period did well able to ambulate and tolerate diet. labs reviewed with her and noted to having stable hgb at 10.6. all questions answered to her satisfaction. pt will go home on norco and clindamycin 300mg bid for 5 days. pt advised to fu in office in 1 wk for postop evaluation. - Vitals & Intake/Output Vital Signs: Vital Signs Temperature 98.8 F 12/28/20 07:19 Pulse Rate 67 12/28/20 07:19 Respiratory Rate 16 12/28/20 07:19 Blood Pressure 91/56 12/28/20 07:19 O2 Sat by Pulse Oximetry 96 12/28/20 07:19 Intake & Output: Intake & Output 12/25/20 12/26/20 12/27/20 12/28/20 11:59 11:59 11:59 11:59 Intake Total 3032 Output Total 1300 Balance 1732 Weight 86 kg - Lab Result Diagrams: 12/28/20 04:20 12/28/20 04:20 Lab Results-Last 24 Hrs: Lab Results-Last 24 Hours 12/27/20 12/27/20 12/28/20 Range/Units 10:47 18:20 04:20 WBC 11.2 H 11.5 H (4.0-10.5) K/mm3 RBC 4.32 3.54 L (4.1-5.4) M/mm3 Hgb 13.0 10.6 L (12.0-16.0) gm/dl Hct 39.4 32.8 L (35-47) % MCV 91.2 92.7 (78-100) fl MCH 30.1 29.9 (26-32) pg MCHC 33.0 32.3 (32-36) g/dl RDW 12.6 12.6 (11.5-14.0) % Plt Count 324 284 (150-450) K/mm3 MPV 9.6 10.3 (7.5-11.0) fl Gran % 77.0 H (36.0-66.0) % Eos # (Auto) 0.02 (0-0.5) Absolute Lymphs (auto) 1.80 (1.0-4.6) Absolute Monos (auto) 0.80 (0.0-1.3) Lymphocytes % 15.7 L (24.0-44.0) % Monocytes % 7.0 (0.0-12.0) % Eosinophils % 0.2 (0.00-5.0) % Basophils % 0.1 (0.0-0.4) % Absolute Granulocytes 8.85 H (1.4-6.9) Basophils # 0.01 (0-0.4) Sodium (137-145) mmol/L Potassium (3.5-5.1) mmol/L Chloride (98-107) mmol/L Carbon Dioxide (22-30) mmol/L Anion Gap (5-15) MEQ/L BUN (7-17) mg/dL Creatinine (0.52-1.04) mg/dL Estimated GFR ML/MIN Glucose (74-106) mg/dL Calcium (8.4-10.2) mg/dL Total Bilirubin (0.2-1.3) mg/dL AST (14-36) U/L ALT (0-35) U/L Alkaline Phosphatase (38-126) U/L Serum Total Protein (6.3-8.2) g/dL Albumin (3.5-5.0) g/dL Urine Color STRAW (YELLOW) Urine Appearance CLEAR (CLEAR) Urine pH 6.0 (5-6) Ur Specific [place] 1.008 (1.005-1.025) Urine Protein NEGATIVE (Negative) Urine Ketones NEGATIVE (NEGATIVE) Urine Blood NEGATIVE (0-5) Etienne/ul Urine Nitrite NEGATIVE (NEGATIVE) Urine Bilirubin NEGATIVE (NEGATIVE) Urine Urobilinogen NEGATIVE (0-1) mg/dL Ur Leukocyte Esterase NEGATIVE (NEGATIVE) Urine WBC (Auto) 0-2 (0-5) /HPF Urine RBC (Auto) 0-2 (0-2) /HPF U Epithel Cells (Auto) RARE (FEW) /HPF Urine Bacteria (Auto) FEW (NEGATIVE) /HPF Urine Mucus (Auto) SLIGHT (NEGATIVE) /HPF Urine Glucose NEGATIVE (NEGATIVE) mg/dL 12/28/20 Range/Units 04:20 WBC (4.0-10.5) K/mm3 RBC (4.1-5.4) M/mm3 Hgb (12.0-16.0) gm/dl Hct (35-47) % MCV (78-100) fl MCH (26-32) pg MCHC (32-36) g/dl RDW (11.5-14.0) % Plt Count (150-450) K/mm3 MPV (7.5-11.0) fl Gran % (36.0-66.0) % Eos # (Auto) (0-0.5) Absolute Lymphs (auto) (1.0-4.6) Absolute Monos (auto) (0.0-1.3) Lymphocytes % (24.0-44.0) % Monocytes % (0.0-12.0) % Eosinophils % (0.00-5.0) % Basophils % (0.0-0.4) % Absolute Granulocytes (1.4-6.9) Basophils # (0-0.4) Sodium 138 (137-145) mmol/L Potassium 3.9 (3.5-5.1) mmol/L Chloride 104 (98-107) mmol/L Carbon Dioxide 24 (22-30) mmol/L Anion Gap 13.7 (5-15) MEQ/L BUN 9 (7-17) mg/dL Creatinine 0.61 (0.52-1.04) mg/dL Estimated GFR > 60.0 ML/MIN Glucose 137 H (74-106) mg/dL Calcium 8.5 (8.4-10.2) mg/dL Total Bilirubin 0.20 (0.2-1.3) mg/dL AST 95 H (14-36) U/L ALT 162 H (0-35) U/L Alkaline Phosphatase 56 (38-126) U/L Serum Total Protein 5.6 L (6.3-8.2) g/dL Albumin 3.2 L (3.5-5.0) g/dL Urine Color (YELLOW) Urine Appearance (CLEAR) Urine pH (5-6) Ur Specific [place] (1.005-1.025) Urine Protein (Negative) Urine Ketones (NEGATIVE) Urine Blood (0-5) Etienne/ul Urine Nitrite (NEGATIVE) Urine Bilirubin (NEGATIVE) Urine Urobilinogen (0-1) mg/dL Ur Leukocyte Esterase (NEGATIVE) Urine WBC (Auto) (0-5) /HPF Urine RBC (Auto) (0-2) /HPF U Epithel Cells (Auto) (FEW) /HPF Urine Bacteria (Auto) (NEGATIVE) /HPF Urine Mucus (Auto) (NEGATIVE) /HPF Urine Glucose (NEGATIVE) mg/dL - Procedures and Test Procedures and Tests throughout Hospitalization: Therapy Orders & Screens 12/27/20 13:05 Incentive Spirometry TID Comment: Diagnosis: abnormal uterine bleeding failed ablation Discharge Exam Wound Assessment: Skin/Wound Assessment Wound/Incision Assessment Start: 12/27/20 20:00 Text: Status: Active Freq: Q4H Protocol: Document 12/28/20 04:00 MS (Rec: 12/28/20 05:20 MS [id number]) Wound/Incision Assessment Abdomen Wound Assessment Shift Assessment Wound Type Incision Wound Stage Non Pressure Wound Drainage Amount None General Appearance Well Approximated,Asymptomatic ,Open to air Surrounding Tissue [place] Wound Photo Photo Taken No - Discharge Disposition: Home, Self-Care Condition: Stable Prescriptions: New Clindamycin HCl 300 mg PO BID #10 capsule Hydrocodone/Acetaminophen [Hydrocodone-Acetamin 5-325 mg ] 1 tab PO Q6HPRN PRN 4 Days #24 tablet MDD 6 PRN Reason: Pain Continue Hydroxyzine HCl 25 mg [Atarax 25 mg] 1 tab PO DAILY PRN PRN Reason: Anxiety Famotidine [Pepcid] 40 mg PO BID Cetirizine HCl [Zyrtec] 5 mg PO DAILY PRN PRN Reason: Allergies Granisetron HCl 1 mg PO AC Scopolamine [Transderm-Scop] 1 each TD UD Follow up with: JUN JAMES [Primary Care Provider] - CHAR PRADO DO [ACTIVE STAFF] - 1 Week (keep incision clean and dry with soap and water no heavy lifting may take shower but no bath for two weeks no intercourse for 6 wks should call me for any issues that may arise anytime)
[2020-12-28] MEDS ORDERED: CLEOCIN 150 MG CAPSULE PO ONE (09:30)
--- NOTE | 2020-12-28 09:34 | OP ---
SURGERY DATE/TIME: 12/27/2020817 PREOPERATIVE DIAGNOSIS: Abnormal uterine bleeding with previous failed ablation. POSTOPERATIVE DIAGNOSIS: Abnormal uterine bleeding with previous failed ablation. PROCEDURE: Laparoscopic assisted vaginal hysterectomy. SURGEON: Lucio Walker D.O. EXPLOSIVE ORDNANCE DISPOSAL MANAGER: Rayray Young surgical scheduler. ANESTHESIA: General. ESTIMATED BLOOD LOSS: 50 cc. COMPLICATIONS: None. INDICATIONS: The risks, benefits, indications and alternatives of the procedure were reviewed with the patient prior to the procedure. The patient understood the risk of infection, bleeding, bowel injury, bladder injury, ureteral injury, incisional hernia, vaginal prolapse, pelvic infection and thromboembolic disorder that may be associated with the surgery however desires to have this surgery as a possible need to alleviate her current medical condition. DESCRIPTION OF PROCEDURE AND FINDINGS: At this point the patient is taken to the operating room, given general sedation, placed in dorsal lithotomy position. Prepped and draped in the usual sterile fashion. A weighted speculum is then placed in the patient's vagina and the anterior lip of the cervix is grasped with a single tooth tenaculum. Endocervical dilator advanced through the endocervical canal as a means to dilate the cervix where a uterine manipulator was then placed in through the endocervical canal as a means to manipulate the uterus. From this point instruments were then removed from the patient's vaginal region. Attention was then turned to the patient's abdomen where a 5 mm skin incision is made approximately 1 cm above the umbilicus where a 5 mm incision was made and a 5 mm trocar and sleeve were advanced under direct visualization where pneumoperitoneum was obtained with 4 liters of CO2 gas. An additional incision is made in the left middle quadrant region where 5 mm trocar and sleeve were advanced under direct visualization and an additional third incision was made in the right middle quadrant region where a 5 mm trocar and sleeve were advanced under direct visualization as well. A survey of the patient's pelvis and abdomen revealed normal anatomy. There were no gross abnormalities located in the pelvic region. Both ovaries appeared to be within normal limits. There were also no noted endometriotic implants that were grossly visualized. From this point the uterine manipulator was then used to lift the uterus and was tilted to its side where a LigaSure was used to grasp the utero-ovarian ligament on the left side where it was clamped, coagulated and cut taking down to the round ligament towards the uterine vasculature where a bladder flap was developed on its side. The same procedure was performed on the right side where the LigaSure was used to clamp the utero-ovarian ligament where it was clamped, coagulated, cut and taken down from the round ligament towards the uterine vasculature. Bipolar was used on both sides to coagulate two contiguous regions of the uterine vasculature and hemostasis obtained where then LigaSure was used to coagulate and cut both vascular pedicles where it was coagulated, cut and a bladder flap developed on both sides. From this point attention was then turned to the patient's vaginal region where a weighted speculum is then placed into the vagina and the cervix was then grasped with two Ying's. The cervix is then injected circumferentially with vasopressin. Approximately 10 cc were used. The cervix was then circumferentially incised with a scalpel and the bladder dissected off the pubovesical cervical fascia anteriorly with a sponge stick and Metzenbaum scissors. The anterior cul-de-sac was then entered sharply. The same procedure was performed posteriorly and the posterior cul-de-sac entered sharply as well. At this point a Melinda clamp was placed on the uterosacral ligaments on either side. These were then transected and suture ligated with 0 Vicryl suture. Again, hemostasis was assured. The Cardinal ligaments were then clamped on both sides, transected and suture ligated in similar fashion. From this point the uterine artery and the broad ligament were then clamped and upon doing so the uterus is then removed. From this point peritoneum was closed with purse-string suture of 0 Vicryl suture. The vaginal cuff angles were closed with figure-of-8 sutures of 0 Vicryl on both sides and transfixed to the ipsilateral Cardinal uterosacral ligament. The remainder of the vaginal cuff was closed with a figure-of-8 suture of 0 Vicryl in interrupted fashion. From this point an additional view was taken through the laparoscope where after doing there was no bleeding that was noted on the cuff region. Irrigation was made and at this point everything appeared to be within normal limits with no bleeding that was noted. From this point all instruments were then removed from the patient's abdominal region and the incisions were closed with 4-0 Monocryl suture with subsequent Dermabond. The patient is then taken out of the dorsal lithotomy position, was taken out of anesthesia and was then taken to recovery room in stable condition. All instruments, laps were accounted for x2.
[2020-12-28] MEDS: Pepcid 20 MG PO SCH (10:01)
[2020-12-28] MEDS: Colace 100 MG PO SCH (10:01)
== END 2020-12-28 10:27 | disposition home or self-care (01) ==
LOC: MED SURG 12-27 06:19 → EDSTATUS 12-27 09:46
PROVIDERS: ADMIT Obstetrics & Gynecology; ATTEND Obstetrics & Gynecology
DX: N93.9 Abnormal uterine and vaginal bleeding, unspecified (principal); N80.0 Endometriosis of uterus; N72 Inflammatory disease of cervix uteri
CPT/HCPCS: 36415; 58550; 80053; 81001; 84703; 85025; 85027; 86850; 86900; 86901; 87086; G0378; 62322; 88307; J0330; J1100; J1650; J1885; J2250; J2274; J3010; A9270-GY

== ENCOUNTER 2021-01-06 10:29 | Emergency (ER) | payer OTHER ==
--- NOTE | 2021-01-06 10:41 | ERPHSYRPT ---
- History of Present Illness Time Seen by Provider: 01/06/21 10:40 Historian: patient Exam Limitations: no limitations Physician History: This is a 30-year-old white female who is a patient of Dr. Walker, watch case polisher. He sent the patient to the emergency department because of pelvic pain. Patient is status post laparoscopic vaginal hysterectomy on 12/27/2020. Patient was discharged on 12/27/2020 with clindamycin antibiotics. Patient states that things were going well until 3 days ago when she noticed pain in her pelvis. She has not had fevers. Patient has a history of chronic gastroparesis and she has had a few episodes of vomiting. This is not unusual for her. Her vaginal discharge is still somewhat pink. It has not changed throughout her postoperative. Patient denies shortness of breath and she denies chest pain. Patient states that she is not nauseated at this time. She also states that she does not have much pain at this time it does not want any pain medication of any kind at this time. Timing/Duration: day(s) (3) Activities at Onset: none Abdominal Pain Onset Location: other (Pelvic) Pain Radiation: no radiation Severity of Pain-Max: moderate Severity of Pain-Current: none Modifying Factors: Improves With: vomiting Associated Symptoms: nausea, vomiting, No chest pain, No diarrhea, No fever/chills Previous symptoms: same symptoms as today Allergies/Adverse Reactions: amoxicillin [Amoxicillin] Allergy (Mild, Verified 01/06/21 10:48) medication interaction with granisetron prolonged QT interval metoclopramide [From Reglan] Allergy (Verified 01/06/21 10:48) Hives ondansetron [From Zofran] Adverse Reaction (Intermediate, Verified 01/06/21 10:48) not compatible with granisteron Home Medications: Hydroxyzine HCl 25 mg [Atarax 25 mg] 1 tab PO DAILY PRN 06/28/20 [History] Famotidine [Pepcid] 40 mg PO BID 10/25/20 [History] Cetirizine HCl [Zyrtec] 5 mg PO DAILY PRN 12/19/20 [History] Granisetron HCl 1 mg PO AC 12/19/20 [History] Scopolamine [Transderm-Scop] 1 each TD UD 12/27/20 [History] Hx Tetanus, Diphtheria Vaccination/Date Given: Yes Hx Influenza Vaccination/Date Given: No Hx Pneumococcal Vaccination/Date Given: No Travel Risk - International Travel Have you traveled outside of the country in past 3 weeks: No - Coronavirus Screening Are you exhibiting any of the following symptoms?: No Close contact with a COVID-19 positive Pt in past 14-21 Days: No - Vaccine Status Have you recieved a Covid-19 vaccination: No - Review of Systems Constitutional: No Symptoms Eyes: No Symptoms Ears, Nose, & Throat: No Symptoms Respiratory: No Symptoms Cardiac: No Symptoms Abdominal/Gastrointestinal: Nausea, Vomiting (Chronic), Other (Pelvic pain) Genitourinary Symptoms: No Symptoms Musculoskeletal: No Symptoms Skin: No Symptoms Neurological: No Symptoms Psychological: No Symptoms Endocrine: No Symptoms Hematologic/Lymphatic: No Symptoms Immunological/Allergic: No Symptoms All Other Systems: Reviewed and Negative - Past Medical History Pertinent Past Medical History: Yes Neurological History: Migraines ENT History: No Pertinent History Cardiac History: No Pertinent History Respiratory History: No Pertinent History Endocrine Medical History: No Pertinent History Musculoskeletal History: No Pertinent History GI Medical History: GERD History: No Pertinent History Psycho-Social History: No Pertinent History Female Reproductive Disorders: Abnormal Uterine Bleeding, Menstrual Problems - Past Surgical History Past Surgical History: Yes Neuro Surgical History: No Pertinent History Cardiac: No Pertinent History Respiratory: No Pertinent History Gastrointestinal: Cholecystectomy Genitourinary: No Pertinent History Musculoskeletal: No Pertinent History Female Surgical History: Dilation & Curettage, Tubal Ligation Other Surgical History: D&C x two - Social History Smoking Status: Former smoker How long have you smoked: couple yea Exposure to second hand smoke: Yes Drug Use: none Patient Lives Alone: No Significant Family History: MOTHER - Nursing Vital Signs Nursing Vital Signs: Initial Vital Signs Temperature 97.0 F 01/06/21 10:40 Pulse Rate 73 01/06/21 10:40 Respiratory Rate 19 01/06/21 10:40 Blood Pressure 123/85 01/06/21 10:40 O2 Sat by Pulse Oximetry 98 01/06/21 10:40 Pain Scale Pain Intensity 4 - Physical Exam General Appearance: no apparent distress, alert, anxiety Eye Exam: PERRL/EOMI, eyes nml inspection Ears, Nose, Throat Exam: normal ENT inspection, moist mucous membranes Neck Exam: normal inspection, non-tender, supple, full range of motion Respiratory Exam: normal breath sounds, lungs clear, airway intact, No chest tenderness, No respiratory distress Cardiovascular Exam: regular rate/rhythm, normal heart sounds, normal peripheral pulses Gastrointestinal/Abdomen Exam: soft, normal bowel sounds, other (Abdominal wall laparoscopic incisions are clean dry and intact without evidence of infection), No tenderness Pelvic Exam: not done Rectal Exam: not done Back Exam: normal inspection, normal range of motion, No CVA tenderness, No vertebral tenderness Extremity Exam: normal inspection, normal range of motion, pelvis stable Neurologic Exam: alert, oriented x 3, cooperative, staff reporter II-XII nml as tested, normal mood/affect, nml cerebellar function, nml station & gait, sensation nml Skin Exam: normal color, warm, dry, other (Laparoscopic incision sites are clean dry and intact without evidence of infection) Lymphatic Exam: No adenopathy SpO2 Interpretation: normal O2 Delivery: Room Air - Course Nursing assessment & vital signs reviewed: Yes Ordered Tests: Active Orders 24 hr Category Date Time Status IV Insertion STAT Care 01/06/21 10:42 Active ABDOMEN AND PELVIS W/0 CONTRAS [CT] Stat Exams 01/06/21 10:45 Completed AMYLASE Stat Lab 01/06/21 10:40 Completed CBC W DIFF Stat Lab 01/06/21 10:40 Completed CMP Stat Lab 01/06/21 10:40 Completed CULTURE,URINE Stat Lab 01/06/21 11:30 Received LIPASE Stat Lab 01/06/21 10:40 Completed Lactic Acid Stat Lab 01/06/21 11:15 Completed UA W/RFX UR CULTURE Stat Lab 01/06/21 11:30 Completed Lab/Rad Data: Laboratory Result Diagrams 01/06/21 10:40 01/06/21 10:40 Laboratory Results 01/06/21 01/06/21 01/06/21 Range/Units 11:30 11:15 10:40 WBC (4.0-10.5) K/mm3 RBC (4.1-5.4) M/mm3 Hgb (12.0-16.0) gm/dl Hct (35-47) % MCV (78-100) fl MCH (26-32) pg MCHC (32-36) g/dl RDW (11.5-14.0) % Plt Count (150-450) K/mm3 MPV (7.5-11.0) fl Gran % (36.0-66.0) % Eos # (Auto) (0-0.5) Absolute Lymphs (auto) (1.0-4.6) Absolute Monos (auto) (0.0-1.3) Lymphocytes % (24.0-44.0) % Monocytes % (0.0-12.0) % Eosinophils % (0.00-5.0) % Basophils % (0.0-0.4) % Absolute Granulocytes (1.4-6.9) Basophils # (0-0.4) Sodium 140 (137-145) mmol/L Potassium 4.4 (3.5-5.1) mmol/L Chloride 108 H (98-107) mmol/L Carbon Dioxide 24 (22-30) mmol/L Anion Gap 12.3 (5-15) MEQ/L BUN 13 (7-17) mg/dL Creatinine 0.69 (0.52-1.04) mg/dL Estimated GFR > 60.0 ML/MIN Glucose 101 (74-106) mg/dL Lactic Acid 1.0 (0.4-2.0) Calcium 9.5 (8.4-10.2) mg/dL Total Bilirubin 0.20 (0.2-1.3) mg/dL AST 24 (14-36) U/L ALT 35 (0-35) U/L Alkaline Phosphatase 89 (38-126) U/L Serum Total Protein 7.6 (6.3-8.2) g/dL Albumin 4.4 (3.5-5.0) g/dL Amylase 52 (30-110) U/L Lipase 52 (23-300) U/L Urine Color YELLOW (YELLOW) Urine Appearance CLOUDY (CLEAR) Urine pH 5.0 (5-6) Ur Specific [place] 1.020 (1.005-1.025) Urine Protein 30 (Negative) Urine Ketones NEGATIVE (NEGATIVE) Urine Blood LARGE (0-5) Etienne/ul Urine Nitrite NEGATIVE (NEGATIVE) Urine Bilirubin NEGATIVE (NEGATIVE) Urine Urobilinogen NEGATIVE (0-1) mg/dL Ur Leukocyte Esterase LARGE (NEGATIVE) Urine WBC (Auto) >100 (0-5) /HPF Urine RBC (Auto) 6-10 (0-2) /HPF U Epithel Cells (Auto) FEW (FEW) /HPF Urine Bacteria (Auto) MANY (NEGATIVE) /HPF Calcium Oxalate Crystal 6-10 (NEGATIVE) /HPF Urine Mucus (Auto) SLIGHT (NEGATIVE) /HPF Urine Culture Reflexed YES (NO) Urine Glucose NEGATIVE (NEGATIVE) mg/dL 01/06/21 Range/Units 10:40 WBC 10.4 (4.0-10.5) K/mm3 RBC 4.65 (4.1-5.4) M/mm3 Hgb 13.9 (12.0-16.0) gm/dl Hct 42.8 (35-47) % MCV 92.0 (78-100) fl MCH 29.9 (26-32) pg MCHC 32.5 (32-36) g/dl RDW 12.8 (11.5-14.0) % Plt Count 394 (150-450) K/mm3 MPV 9.6 (7.5-11.0) fl Gran % 62.7 (36.0-66.0) % Eos # (Auto) 0.29 (0-0.5) Absolute Lymphs (auto) 2.77 (1.0-4.6) Absolute Monos (auto) 0.78 (0.0-1.3) Lymphocytes % 26.6 (24.0-44.0) % Monocytes % 7.5 (0.0-12.0) % Eosinophils % 2.8 (0.00-5.0) % Basophils % 0.4 (0.0-0.4) % Absolute Granulocytes 6.53 (1.4-6.9) Basophils # 0.04 (0-0.4) Sodium (137-145) mmol/L Potassium (3.5-5.1) mmol/L Chloride (98-107) mmol/L Carbon Dioxide (22-30) mmol/L Anion Gap (5-15) MEQ/L BUN (7-17) mg/dL Creatinine (0.52-1.04) mg/dL Estimated GFR ML/MIN Glucose (74-106) mg/dL Lactic Acid (0.4-2.0) Calcium (8.4-10.2) mg/dL Total Bilirubin (0.2-1.3) mg/dL AST (14-36) U/L ALT (0-35) U/L Alkaline Phosphatase (38-126) U/L Serum Total Protein (6.3-8.2) g/dL Albumin (3.5-5.0) g/dL Amylase (30-110) U/L Lipase (23-300) U/L Urine Color (YELLOW) Urine Appearance (CLEAR) Urine pH (5-6) Ur Specific [place] (1.005-1.025) Urine Protein (Negative) Urine Ketones (NEGATIVE) Urine Blood (0-5) Etienne/ul Urine Nitrite (NEGATIVE) Urine Bilirubin (NEGATIVE) Urine Urobilinogen (0-1) mg/dL Ur Leukocyte Esterase (NEGATIVE) Urine WBC (Auto) (0-5) /HPF Urine RBC (Auto) (0-2) /HPF U Epithel Cells (Auto) (FEW) /HPF Urine Bacteria (Auto) (NEGATIVE) /HPF Calcium Oxalate Crystal (NEGATIVE) /HPF Urine Mucus (Auto) (NEGATIVE) /HPF Urine Culture Reflexed (NO) Urine Glucose (NEGATIVE) mg/dL - Progress Progress: unchanged, re-examined Progress Note: 01/06/21 11:49 CAT scan of the abdomen pelvis without contrast shows no acute intra-abdominal or intrapelvic abnormalities. Specifically there is no mention of any fluid collection or abscess or injury to any intra-abdominal or intrapelvic structures or organs. Counseled pt/family regarding: lab results, diagnosis, need for follow-up, rad results - Departure Departure Disposition: Home Clinical Impression: UTI (urinary tract infection) Condition: Stable Critical Care Time: No Referrals: JUN JAMES [Primary Care Provider] - Additional Instructions: Drink plenty of fluids. Take medication as prescribed. Follow-up with your watch case polisher at your next scheduled appointment. Prescriptions: Ciprofloxacin [Cipro 500 MG] 500 mg PO BID #14 tablet
[2021-01-06 10:46] VITALS: O2SAT 98
[2021-01-06 11:01] LABS: Absolute Neutrophil Ct (ANC) 6.53 (1.4-6.9); BASOPHIL % 0.4 % (0.0-0.4); Basophil (Absolute #) 0.04 (0-0.4); Eosinophil % 2.8 % (0.00-5.0); Eosinophil (Absolute #) 0.29 (0-0.5); Hematocrit 42.8 % (35-47); Hemoglobin 13.9 gm/dl (12.0-16.0); Lymphocyte (Absolute #) 2.77 (1.0-4.6); Lymphocytes % 26.6 % (24.0-44.0); Mean Corpuscular Hemoglobin 29.9 pg (26-32); Mean Corpuscular Hgb Concent. 32.5 g/dl (32-36); Mean Platelet Volume 9.6 fl (7.5-11.0); Monocyte (Absolute #) 0.78 (0.0-1.3); Monocytes % 7.5 % (0.0-12.0); Neutrophil % 62.7 % (36.0-66.0); Platelet Count 394 K/mm3 (150-450); Red Blood Count 4.65 M/mm3 (4.1-5.4); Red Cell Distribution Width 12.8 % (11.5-14.0); White Blood Count 10.4 K/mm3 (4.0-10.5)
[2021-01-06 11:16] LABS: ALBUMIN 4.4 g/dL (3.5-5.0); ALKALINE PHOSPHATASE 89 U/L (38-126); AMYLASE 52 U/L (30-110); ANION GAP 12.3 MEQ/L (5-15); BLOOD UREA NITROGEN 13 mg/dL (7-17); CHLORIDE 108 mmol/L (98-107); Calcium 9.5 mg/dL (8.4-10.2); Carbon Dioxide 24 mmol/L (22-30); Creatinine 1 0.69 mg/dL (0.52-1.04); EST GLOMERULAR FILTRATION RATE > 60.0 ML/MIN; Glucose 101 mg/dL (74-106); LIPASE 52 U/L (23-300); Potassium 4.4 mmol/L (3.5-5.1); SGOT/AST 24 U/L (14-36); SGPT/ALT 35 U/L (0-35); SODIUM 140 mmol/L (137-145); Total Protein 7.6 g/dL (6.3-8.2)
--- NOTE | 2021-01-06 11:35 | XRAY ---
Indication: Pelvic pain and burning. Status post hysterectomy December 27, 2020. Multiple contiguous axial images obtained through the abdomen and pelvis without contrast. Comparison: July 07, 2020. Lung bases again demonstrates mild dependent atelectasis. No infiltrate or effusion. Heart is not enlarged. Stable small hiatal hernia. Noncontrasted stomach and bowel loops are nonobstructed with normal appendix. Interval hysterectomy and cholecystectomy. No free fluid/air. Again both ovaries demonstrate faint calcifications outlining the ovaries. Spleen remains enlarged today measuring 13.8 cm. Remaining liver, pancreas, spleen, adrenal glands, kidneys, ureters, bladder, and aorta are unremarkable for noncontrast exam. Osseous structures remain intact. Impression: 1. Interval hysterectomy and cholecystectomy without complications. 2. Stable faint bilateral ovary remote calcifications, splenomegaly, and small hiatal hernia. 3. Remaining CT abdomen/pelvis without contrast exam is negative.
[2021-01-06 11:53] LABS: Appearance CLOUDY (CLEAR); Bacteria MANY /HPF (NEGATIVE); Bilirubin NEGATIVE (NEGATIVE); Blood LARGE Ery/ul (0-5); Epithelial Cells FEW /HPF (FEW); Glucose NEGATIVE (NEGATIVE); Ketones NEGATIVE (NEGATIVE); Leukocyte Esterase LARGE (NEGATIVE); Mucus SLIGHT /HPF (NEGATIVE); Nitrite NEGATIVE (NEGATIVE); Protein,Urine Dip 30 (Negative); Urobilinogen NEGATIVE mg/dL (0-1); WBC >100 /HPF (0-5)
[2021-01-06] MEDS ORDERED: ROCEPHIN 1 Gm-D5w 50 ml Bag** 1 G/50 ML IVPB IV STA (12:04)
[2021-01-06] MEDS ORDERED: ROCEPHIN 1 Gm-D5w 50 ml Bag** 1 G/50 ML IVPB IV ONE (12:06)
[2021-01-06 12:11] VITALS: BP 113/82; PULSE 56
== END 2021-01-06 12:22 | disposition home or self-care (01) ==
LOC: ED 10:29
DX: N39.0 Urinary tract infection, site not specified (principal)
CPT/HCPCS: 36000; 36415; 74176; 80053; 81001; 82150; 83605; 83690; 85025; 87086; 96365; 99284; J0696

== ENCOUNTER 2021-06-06 12:17 | Emergency (ER) | payer OTHER ==
--- NOTE | 2021-06-06 12:23 | ERPHSYRPT ---
- History of Present Illness Time Seen by Provider: 06/06/21 12:22 Historian: patient Exam Limitations: no limitations Physician History: This is a 30-year-old obese white female who has had hysterectomy and cholecystectomy in the past and presents with 24-hour history of abdominal pain with associated nausea and vomiting. The stomach pain came on suddenly per her report. Within a few hours she began having multiple episodes of vomiting. Patient has a history of gastroparesis. She has not seen her combiner operator and quite some time. Patient has a history of migraine headaches as well as gastroesophageal reflux disease. Patient denies chest pain. Timing/Duration: yesterday Activities at Onset: none Quality: aching Abdominal Pain Onset Location: RUQ, epigastric Pain Radiation: no radiation, RUQ, epigastric Severity of Pain-Max: mild (To moderate) Severity of Pain-Current: mild (To moderate) Associated Symptoms: nausea, vomiting Previous symptoms: same symptoms as today, no recent treatment Allergies/Adverse Reactions: amoxicillin [Amoxicillin] Allergy (Mild, Verified 06/06/21 13:00) medication interaction with granisetron prolonged QT interval metoclopramide [From Reglan] Allergy (Verified 06/06/21 13:00) Hives Home Medications: Hydroxyzine HCl 25 mg [Atarax 25 mg] 1 tab PO DAILY PRN 06/28/20 [History] Famotidine [Pepcid] 40 mg PO BID 10/25/20 [History] Cetirizine HCl [Zyrtec] 5 mg PO DAILY PRN 12/19/20 [History] Ondansetron ODT 4 MG [Zofran Odt 4 mg] 4 mg PO DAILY 06/06/21 [History] Hx Tetanus, Diphtheria Vaccination/Date Given: Yes Hx Influenza Vaccination/Date Given: No Hx Pneumococcal Vaccination/Date Given: No Travel Risk - International Travel Have you traveled outside of the country in past 3 weeks: No - Coronavirus Screening Are you exhibiting any of the following symptoms?: No Close contact with a COVID-19 positive Pt in past 14-21 Days: No - Vaccine Status Have you recieved a Covid-19 vaccination: No - Past Medical History Pertinent Past Medical History: Yes Neurological History: Migraines ENT History: No Pertinent History Cardiac History: No Pertinent History Respiratory History: No Pertinent History Endocrine Medical History: No Pertinent History Musculoskeletal History: No Pertinent History GI Medical History: GERD History: No Pertinent History Psycho-Social History: No Pertinent History Female Reproductive Disorders: Abnormal Uterine Bleeding, Menstrual Problems Other Medical History: gastroporesis - Past Surgical History Past Surgical History: Yes Neuro Surgical History: No Pertinent History Cardiac: No Pertinent History Respiratory: No Pertinent History Gastrointestinal: Cholecystectomy Genitourinary: No Pertinent History Musculoskeletal: No Pertinent History Female Surgical History: Dilation & Curettage, Tubal Ligation Other Surgical History: D&C x two - Social History Smoking Status: Former smoker How long have you smoked: couple yea Exposure to second hand smoke: Yes Drug Use: none Patient Lives Alone: No Significant Family History: MOTHER - Nursing Vital Signs Nursing Vital Signs: Initial Vital Signs Temperature 97.6 F 06/06/21 12:50 Pulse Rate 75 06/06/21 12:50 Blood Pressure 114/76 06/06/21 12:50 O2 Sat by Pulse Oximetry 98 06/06/21 12:50 Pain Scale Pain Intensity 8 Ordered Tests: Active Orders 24 hr Category Date Time Status IV Insertion STAT Care 06/06/21 13:41 Active ABDOMEN AND PELVIS W/0 CONTRAS [CT] Stat Exams 06/06/21 13:42 Taken AMYLASE Stat Lab 06/06/21 13:00 Completed CBC W DIFF Stat Lab 06/06/21 13:00 Completed CMP Stat Lab 06/06/21 13:00 Completed LIPASE Stat Lab 06/06/21 13:00 Completed Lactic Acid Stat Lab 06/06/21 13:45 Completed UA W/RFX UR CULTURE Stat Lab 06/06/21 13:47 Completed Medication Summary Discontinued Medications Generic Name Dose Route Start Last Admin Trade Name Ernie PRN Reason Stop Dose Admin Hydromorphone HCl 1 mg 06/06/21 13:41 06/06/21 13:51 Hydromorphone 1 Mg/Ml Injection IV 06/06/21 13:42 1 mg STAT ONE Administration Hydromorphone HCl Confirm 06/06/21 13:48 Hydromorphone 1 Mg/Ml Injection Administered 06/06/21 13:49 Dose 1 mg .ROUTE .STK-MED ONE Hydromorphone HCl 1 mg 06/06/21 15:11 06/06/21 15:17 Hydromorphone 1 Mg/Ml Injection IV 06/06/21 15:12 1 mg STAT ONE Administration Sodium Chloride 1,000 mls @ 999 mls/hr 06/06/21 13:41 06/06/21 13:51 Sodium Chloride 0.9% 1000 Ml IV 06/06/21 14:41 999 mls/hr .Q1H1M STA Administration Sodium Chloride Confirm 06/06/21 13:48 Sodium Chloride 0.9% 1000 Ml Administered 06/06/21 13:49 Dose 1,000 mls @ ud .ROUTE .STK-MED ONE Ondansetron HCl 4 mg 06/06/21 13:41 06/06/21 13:51 Zofran 4 Mg/2 Ml Vial IV 06/06/21 13:42 4 mg STAT ONE Administration Ondansetron HCl Confirm 06/06/21 13:48 Zofran 4 Mg/2 Ml Vial Administered 06/06/21 13:49 Dose 4 mg .ROUTE .STK-MED ONE Lab/Rad Data: Laboratory Result Diagrams 06/06/21 13:00 06/06/21 13:00 Laboratory Results 06/06/21 06/06/21 06/06/21 Range/Units 13:47 13:45 13:00 WBC (4.0-10.5) K/mm3 RBC (4.1-5.4) M/mm3 Hgb (12.0-16.0) gm/dl Hct (35-47) % MCV (78-100) fl MCH (26-32) pg MCHC (32-36) g/dl RDW (11.5-14.0) % Plt Count (150-450) K/mm3 MPV (7.5-11.0) fl Gran % (36.0-66.0) % Eos # (Auto) (0-0.5) Absolute Lymphs (auto) (1.0-4.6) Absolute Monos (auto) (0.0-1.3) Lymphocytes % (24.0-44.0) % Monocytes % (0.0-12.0) % Eosinophils % (0.00-5.0) % Basophils % (0.0-0.4) % Absolute Granulocytes (1.4-6.9) Basophils # (0-0.4) Sodium 139 (137-145) mmol/L Potassium 4.2 (3.5-5.1) mmol/L Chloride 104 (98-107) mmol/L Carbon Dioxide 25 (22-30) mmol/L Anion Gap 14.5 (5-15) MEQ/L BUN 12 (7-17) mg/dL Creatinine 0.67 (0.52-1.04) mg/dL Estimated GFR > 60.0 ML/MIN Glucose 87 (74-106) mg/dL Lactic Acid 0.6 (0.4-2.0) Calcium 9.3 (8.4-10.2) mg/dL Total Bilirubin 0.40 (0.2-1.3) mg/dL AST 13 L (14-36) U/L ALT 13 (0-35) U/L Alkaline Phosphatase 65 (38-126) U/L Serum Total Protein 6.8 (6.3-8.2) g/dL Albumin 4.2 (3.5-5.0) g/dL Amylase 42 (30-110) U/L Lipase 26 (23-300) U/L Urine Color YELLOW (YELLOW) Urine Appearance CLOUDY (CLEAR) Urine pH 5.0 (5-6) Ur Specific [place] 1.020 (1.005-1.025) Urine Protein NEGATIVE (Negative) Urine Ketones NEGATIVE (NEGATIVE) Urine Blood NEGATIVE (0-5) Etienne/ul Urine Nitrite NEGATIVE (NEGATIVE) Urine Bilirubin NEGATIVE (NEGATIVE) Urine Urobilinogen NEGATIVE (0-1) mg/dL Ur Leukocyte Esterase NEGATIVE (NEGATIVE) Urine WBC (Auto) 3-5 (0-5) /HPF Urine RBC (Auto) NONE (0-2) /HPF U Epithel Cells (Auto) FEW (FEW) /HPF Urine Bacteria (Auto) FEW (NEGATIVE) /HPF Urine Mucus (Auto) SLIGHT (NEGATIVE) /HPF Urine Culture Reflexed NO (NO) Urine Glucose NEGATIVE (NEGATIVE) mg/dL 06/06/21 Range/Units 13:00 WBC 9.2 (4.0-10.5) K/mm3 RBC 4.60 (4.1-5.4) M/mm3 Hgb 13.7 (12.0-16.0) gm/dl Hct 42.8 (35-47) % MCV 93.0 (78-100) fl MCH 29.8 (26-32) pg MCHC 32.0 (32-36) g/dl RDW 13.0 (11.5-14.0) % Plt Count 342 (150-450) K/mm3 MPV 9.8 (7.5-11.0) fl Gran % 64.6 (36.0-66.0) % Eos # (Auto) 0.20 (0-0.5) Absolute Lymphs (auto) 2.48 (1.0-4.6) Absolute Monos (auto) 0.55 (0.0-1.3) Lymphocytes % 27.0 (24.0-44.0) % Monocytes % 6.0 (0.0-12.0) % Eosinophils % 2.2 (0.00-5.0) % Basophils % 0.2 (0.0-0.4) % Absolute Granulocytes 5.92 (1.4-6.9) Basophils # 0.02 (0-0.4) Sodium (137-145) mmol/L Potassium (3.5-5.1) mmol/L Chloride (98-107) mmol/L Carbon Dioxide (22-30) mmol/L Anion Gap (5-15) MEQ/L BUN (7-17) mg/dL Creatinine (0.52-1.04) mg/dL Estimated GFR ML/MIN Glucose (74-106) mg/dL Lactic Acid (0.4-2.0) Calcium (8.4-10.2) mg/dL Total Bilirubin (0.2-1.3) mg/dL AST (14-36) U/L ALT (0-35) U/L Alkaline Phosphatase (38-126) U/L Serum Total Protein (6.3-8.2) g/dL Albumin (3.5-5.0) g/dL Amylase (30-110) U/L Lipase (23-300) U/L Urine Color (YELLOW) Urine Appearance (CLEAR) Urine pH (5-6) Ur Specific [place] (1.005-1.025) Urine Protein (Negative) Urine Ketones (NEGATIVE) Urine Blood (0-5) Etienne/ul Urine Nitrite (NEGATIVE) Urine Bilirubin (NEGATIVE) Urine Urobilinogen (0-1) mg/dL Ur Leukocyte Esterase (NEGATIVE) Urine WBC (Auto) (0-5) /HPF Urine RBC (Auto) (0-2) /HPF U Epithel Cells (Auto) (FEW) /HPF Urine Bacteria (Auto) (NEGATIVE) /HPF Urine Mucus (Auto) (NEGATIVE) /HPF Urine Culture Reflexed (NO) Urine Glucose (NEGATIVE) mg/dL - Progress Progress: improved, pain not gone completely, re-examined Progress Note: 06/06/21 15:56 CAT scan of the abdomen and pelvis without contrast shows an enlarging moderate sized hiatal hernia with partial intrathoracic stomach. No acute intraabdominal or intrapelvic abnormality Counseled pt/family regarding: lab results, diagnosis, need for follow-up, rad results - Departure Departure Disposition: Home Clinical Impression: Hiatal hernia Condition: Stable Critical Care Time: No Referrals: JUN JAMES [Primary Care Provider] - Additional Instructions: Drink plenty of fluids. Follow-up with your primary care doctor to refer you to a combiner operator and a general surgeon to address your enlarging hiatal hernia and intrathoracic stomach issue. Prescriptions: Hydrocodone/APAP 5/325 [Russell 5/325 mg] 1 each PO Q8H PRN PRN #6 tablet MDD 3 PRN Reason: Pain
[2021-06-06] MEDS ORDERED: Zofran 4 MG/2 ML VIAL IV ONE (13:41)
[2021-06-06] MEDS ORDERED: Hydromorphone 1 mg/ml Injection IV ONE ×2 (13:41→15:11)
[2021-06-06] MEDS ORDERED: Sodium Chloride 0.9% 1000 ML 1,000 ML IV STA (13:41)
[2021-06-06] MEDS ORDERED: Sodium Chloride 0.9% 1000 ML 1,000 ML ONE (13:48)
[2021-06-06] MEDS ORDERED: Zofran 4 MG/2 ML VIAL ONE (13:48)
[2021-06-06] MEDS ORDERED: Hydromorphone 1 mg/ml Injection ONE (13:48)
[2021-06-06 13:55] LABS: Absolute Neutrophil Ct (ANC) 5.92 (1.4-6.9); BASOPHIL % 0.2 % (0.0-0.4); Basophil (Absolute #) 0.02 (0-0.4); Eosinophil % 2.2 % (0.00-5.0); Hematocrit 42.8 % (35-47); Hemoglobin 13.7 gm/dl (12.0-16.0); Lymphocyte (Absolute #) 2.48 (1.0-4.6); Mean Corpuscular Hemoglobin 29.8 pg (26-32); Mean Platelet Volume 9.8 fl (7.5-11.0); Monocyte (Absolute #) 0.55 (0.0-1.3); Neutrophil % 64.6 % (36.0-66.0); Platelet Count 342 K/mm3 (150-450); White Blood Count 9.2 K/mm3 (4.0-10.5)
[2021-06-06 14:29] LABS: ALBUMIN 4.2 g/dL (3.5-5.0); ALKALINE PHOSPHATASE 65 U/L (38-126); AMYLASE 42 U/L (30-110); ANION GAP 14.5 MEQ/L (5-15); BLOOD UREA NITROGEN 12 mg/dL (7-17); CHLORIDE 104 mmol/L (98-107); Calcium 9.3 mg/dL (8.4-10.2); Carbon Dioxide 25 mmol/L (22-30); Creatinine 1 0.67 mg/dL (0.52-1.04); EST GLOMERULAR FILTRATION RATE > 60.0 ML/MIN; Glucose 87 mg/dL (74-106); LIPASE 26 U/L (23-300); Potassium 4.2 mmol/L (3.5-5.1); SGOT/AST 13 U/L (14-36); SGPT/ALT 13 U/L (0-35); SODIUM 139 mmol/L (137-145); Total Protein 6.8 g/dL (6.3-8.2)
[2021-06-06 15:30] LABS: Appearance CLOUDY (CLEAR); Bacteria FEW /HPF (NEGATIVE); Bilirubin NEGATIVE (NEGATIVE); Blood NEGATIVE Ery/ul (0-5); Epithelial Cells FEW /HPF (FEW); Glucose NEGATIVE (NEGATIVE); Ketones NEGATIVE (NEGATIVE); Leukocyte Esterase NEGATIVE (NEGATIVE); Mucus SLIGHT /HPF (NEGATIVE); Nitrite NEGATIVE (NEGATIVE); Protein,Urine Dip NEGATIVE (Negative); Urobilinogen NEGATIVE mg/dL (0-1)
--- NOTE | 2021-06-06 16:03 | XRAY ---
Indication: Right sided pain. Nausea and vomiting. History gastroparesis. Multiple contiguous axial images obtained through the abdomen and pelvis without contrast. Comparison: January 06, 2021. Lung bases again demonstrates mild dependent atelectasis without focal infiltrate or effusion. Heart is not enlarged. Enlarging moderate size hiatal hernia with partial intrathoracic stomach. Noncontrasted stomach and bowel loops nonobstructed again with normal appendix. Again partial hysterectomy and cholecystectomy. No free fluid/air. Spleen remains enlarged measuring 13.5 cm. Remaining liver, pancreas, spleen, adrenal glands, kidneys, ureters, bladder, and aorta are unremarkable for noncontrast exam. Osseous structures intact. No ventral or inguinal hernias. Impression: 1. Enlarging moderate size hiatal hernia with partial intrathoracic stomach. 2. Again incidental splenomegaly. 3. Remaining CT abdomen/pelvis without contrast exam is again negative.
[2021-06-06 16:34] VITALS: BP 112/80; PULSE 53; O2SAT 96
== END 2021-06-06 16:45 | disposition home or self-care (01) ==
LOC: ED 12:17
DX: K44.9 Diaphragmatic hernia without obstruction or gangrene (principal)
CPT/HCPCS: 36000; 36415; 74176; 80053; 81001; 82150; 83605; 83690; 85025; 96374; 96375; 96376; 99284; J1170; J2405

== ENCOUNTER 2021-06-16 18:35 | Emergency (ER) | payer OTHER ==
--- NOTE | 2021-06-16 18:41 | ERPHSYRPT ---
- History of Present Illness Time Seen by Provider: 06/16/21 18:41 Historian: patient Exam Limitations: no limitations Physician History: This is a 30-year-old female who sees nurse practitioner Davida Jackman as her primary care provider and presents with upper abdominal pain, nausea and vomiting. She had no fevers. She has no cough. She has no chest pain. She denies shortness of breath. Patient history of gastroparesis, migraine headaches and gastroesophageal reflux disease. Patient was seen by me on 06/06/2021 with similar complaints. In the interim, between that visit and today visit, patient was seen by security sergeant who recommended that she uses Zoë LAX today for a total of 12 doses. Patient was unable to keep more than 8 down. She began having vomiting episodes and abdominal pain prior to her arrival to the emergency room. A CAT scan of the abdomen and pelvis without contrast was performed on 06/06/2021 which shows a hiatal hernia that was enlarged compared to a prior CAT scan of the abdomen pelvis and shows a partial intrathoracic stomach. Patient has had a cholecystectomy and a hysterectomy performed in the past Timing/Duration: today Quality: aching Abdominal Pain Onset Location: RUQ, epigastric Severity of Pain-Max: moderate Severity of Pain-Current: moderate Modifying Factors: Improves With: vomiting Associated Symptoms: nausea, vomiting Previous symptoms: same symptoms as today, recently seen, recently treated Allergies/Adverse Reactions: amoxicillin [Amoxicillin] Allergy (Mild, Verified 06/16/21 18:40) medication interaction with granisetron prolonged QT interval metoclopramide [From Reglan] Allergy (Verified 06/16/21 18:40) Hives Home Medications: Hydroxyzine HCl 25 mg [Atarax 25 mg] 1 tab PO DAILY PRN 06/28/20 [History] Famotidine [Pepcid] 40 mg PO BID 10/25/20 [History] Lansoprazole [Prevacid] 1 tab PO DAILY 06/16/21 [History] Hx Tetanus, Diphtheria Vaccination/Date Given: Yes Hx Influenza Vaccination/Date Given: No Hx Pneumococcal Vaccination/Date Given: No Travel Risk - International Travel Have you traveled outside of the country in past 3 weeks: No - Coronavirus Screening Are you exhibiting any of the following symptoms?: No - Vaccine Status Have you recieved a Covid-19 vaccination: No - Review of Systems Constitutional: No Symptoms Eyes: No Symptoms Ears, Nose, & Throat: No Symptoms Respiratory: No Symptoms Cardiac: No Symptoms Abdominal/Gastrointestinal: Abdominal Pain, Nausea, Vomiting Genitourinary Symptoms: No Symptoms Musculoskeletal: No Symptoms Skin: No Symptoms Neurological: No Symptoms Psychological: No Symptoms Endocrine: No Symptoms Hematologic/Lymphatic: No Symptoms Immunological/Allergic: No Symptoms All Other Systems: Reviewed and Negative - Past Medical History Pertinent Past Medical History: Yes Neurological History: Migraines ENT History: No Pertinent History Cardiac History: No Pertinent History Respiratory History: No Pertinent History Endocrine Medical History: No Pertinent History Musculoskeletal History: No Pertinent History GI Medical History: GERD History: No Pertinent History Psycho-Social History: No Pertinent History Female Reproductive Disorders: Abnormal Uterine Bleeding, Menstrual Problems Other Medical History: gastroporesis - Past Surgical History Past Surgical History: Yes Neuro Surgical History: No Pertinent History Cardiac: No Pertinent History Respiratory: No Pertinent History Gastrointestinal: Cholecystectomy Genitourinary: No Pertinent History Musculoskeletal: No Pertinent History Female Surgical History: Dilation & Curettage, Tubal Ligation Other Surgical History: D&C x two - Social History Smoking Status: Never smoker How long have you smoked: couple yea Exposure to second hand smoke: No Drug Use: none Patient Lives Alone: No Significant Family History: MOTHER - Nursing Vital Signs Nursing Vital Signs: Initial Vital Signs Temperature 97.5 F 06/16/21 18:44 Pulse Rate 103 H 06/16/21 18:44 Respiratory Rate 18 06/16/21 18:44 Blood Pressure 145/80 06/16/21 18:44 O2 Sat by Pulse Oximetry 99 06/16/21 18:44 Pain Scale Pain Intensity 10 - Physical Exam General Appearance: no apparent distress, alert, anxiety Eye Exam: PERRL/EOMI, eyes nml inspection Ears, Nose, Throat Exam: normal ENT inspection, moist mucous membranes Neck Exam: normal inspection, non-tender, supple, full range of motion Respiratory Exam: normal breath sounds, lungs clear, airway intact, No chest tenderness, No respiratory distress Cardiovascular Exam: regular rate/rhythm, normal heart sounds, normal peripheral pulses Gastrointestinal/Abdomen Exam: soft, normal bowel sounds, No tenderness Pelvic Exam: not done Rectal Exam: not done Back Exam: normal inspection, normal range of motion, No CVA tenderness, No vertebral tenderness Extremity Exam: normal inspection, normal range of motion, pelvis stable Neurologic Exam: alert, oriented x 3, cooperative, repairer welding systems and equipment II-XII nml as tested, normal mood/affect, nml cerebellar function, nml station & gait, sensation nml Skin Exam: normal color, warm, dry Lymphatic Exam: No adenopathy SpO2 Interpretation: normal O2 Delivery: Room Air - Course Nursing assessment & vital signs reviewed: Yes Ordered Tests: Active Orders 24 hr Category Date Time Status ABDOMEN AND PELVIS W/0 CONTRAS [CT] Stat Exams 06/16/21 19:06 Completed AMYLASE Stat Lab 06/16/21 19:25 Completed CBC W DIFF Stat Lab 06/16/21 19:25 Completed CMP Stat Lab 06/16/21 19:25 Completed CULTURE,URINE Stat Lab 06/16/21 19:16 Received LIPASE Stat Lab 06/16/21 19:25 Completed Lactic Acid Stat Lab 06/16/21 19:15 Completed UA W/RFX UR CULTURE Stat Lab 06/16/21 19:16 Completed Medication Summary Discontinued Medications Generic Name Dose Route Start Last Admin Trade Name Freq PRN Reason Stop Dose Admin Hydromorphone HCl 1 mg 06/16/21 19:05 06/16/21 19:18 Hydromorphone 1 Mg/Ml Injection IV 06/16/21 19:06 1 mg STAT ONE Administration Hydromorphone HCl Confirm 06/16/21 19:17 Hydromorphone 1 Mg/Ml Injection Administered 06/16/21 19:18 Dose 1 mg .ROUTE .STK-MED ONE Sodium Chloride 1,000 mls @ 999 mls/hr 06/16/21 19:05 06/16/21 19:18 Sodium Chloride 0.9% 1000 Ml IV 06/16/21 20:05 999 mls/hr .Q1H1M STA Administration Sodium Chloride Confirm 06/16/21 19:17 Sodium Chloride 0.9% 1000 Ml Administered 06/16/21 19:18 Dose 1,000 mls @ ud .ROUTE .STK-MED ONE Ondansetron HCl 4 mg 06/16/21 19:05 06/16/21 19:18 Zofran 4 Mg/2 Ml Vial IV 06/16/21 19:06 4 mg STAT ONE Administration Ondansetron HCl Confirm 06/16/21 19:16 Zofran 4 Mg/2 Ml Vial Administered 06/16/21 19:17 Dose 4 mg .ROUTE .STK-MED ONE Lab/Rad Data: Laboratory Result Diagrams 06/16/21 19:25 06/16/21 19:25 Laboratory Results 06/16/21 06/16/21 06/16/21 Range/Units 19:25 19:25 19:16 WBC 9.3 (4.0-10.5) K/mm3 RBC 4.67 (4.1-5.4) M/mm3 Hgb 13.9 (12.0-16.0) gm/dl Hct 43.1 (35-47) % MCV 92.3 (78-100) fl MCH 29.8 (26-32) pg MCHC 32.3 (32-36) g/dl RDW 13.1 (11.5-14.0) % Plt Count 340 (150-450) K/mm3 MPV 9.7 (7.5-11.0) fl Gran % 66.1 H (36.0-66.0) % Eos # (Auto) 0.12 (0-0.5) Absolute Lymphs (auto) 2.51 (1.0-4.6) Absolute Monos (auto) 0.51 (0.0-1.3) Lymphocytes % 26.9 (24.0-44.0) % Monocytes % 5.5 (0.0-12.0) % Eosinophils % 1.3 (0.00-5.0) % Basophils % 0.2 (0.0-0.4) % Absolute Granulocytes 6.17 (1.4-6.9) Basophils # 0.02 (0-0.4) Sodium 140 (137-145) mmol/L Potassium 3.7 (3.5-5.1) mmol/L Chloride 105 (98-107) mmol/L Carbon Dioxide 27 (22-30) mmol/L Anion Gap 12.2 (5-15) MEQ/L BUN 11 (7-17) mg/dL Creatinine 0.70 (0.52-1.04) mg/dL Estimated GFR > 60.0 ML/MIN Glucose 84 (74-106) mg/dL Lactic Acid (0.4-2.0) Calcium 10.0 (8.4-10.2) mg/dL Total Bilirubin 0.30 (0.2-1.3) mg/dL AST 21 (14-36) U/L ALT 17 (0-35) U/L Alkaline Phosphatase 62 (38-126) U/L Serum Total Protein 7.2 (6.3-8.2) g/dL Albumin 4.4 (3.5-5.0) g/dL Amylase 59 (30-110) U/L Lipase 39 (23-300) U/L Urine Color YELLOW (YELLOW) Urine Appearance CLOUDY (CLEAR) Urine pH 7.0 (5-6) Ur Specific [place] 1.015 (1.005-1.025) Urine Protein NEGATIVE (Negative) Urine Ketones NEGATIVE (NEGATIVE) Urine Blood NEGATIVE (0-5) Etienne/ul Urine Nitrite NEGATIVE (NEGATIVE) Urine Bilirubin NEGATIVE (NEGATIVE) Urine Urobilinogen NEGATIVE (0-1) mg/dL Ur Leukocyte Esterase NEGATIVE (NEGATIVE) Urine WBC (Auto) 3-5 (0-5) /HPF Urine RBC (Auto) NONE (0-2) /HPF U Hyaline Cast (Auto) 0-2 (0-2) /LPF U Epithel Cells (Auto) RARE (FEW) /HPF Urine Bacteria (Auto) MANY (NEGATIVE) /HPF Urine Mucus (Auto) SLIGHT (NEGATIVE) /HPF Urine Culture Reflexed YES (NO) Urine Glucose NEGATIVE (NEGATIVE) mg/dL 06/16/21 Range/Units 19:15 WBC (4.0-10.5) K/mm3 RBC (4.1-5.4) M/mm3 Hgb (12.0-16.0) gm/dl Hct (35-47) % MCV (78-100) fl MCH (26-32) pg MCHC (32-36) g/dl RDW (11.5-14.0) % Plt Count (150-450) K/mm3 MPV (7.5-11.0) fl Gran % (36.0-66.0) % Eos # (Auto) (0-0.5) Absolute Lymphs (auto) (1.0-4.6) Absolute Monos (auto) (0.0-1.3) Lymphocytes % (24.0-44.0) % Monocytes % (0.0-12.0) % Eosinophils % (0.00-5.0) % Basophils % (0.0-0.4) % Absolute Granulocytes (1.4-6.9) Basophils # (0-0.4) Sodium (137-145) mmol/L Potassium (3.5-5.1) mmol/L Chloride (98-107) mmol/L Carbon Dioxide (22-30) mmol/L Anion Gap (5-15) MEQ/L BUN (7-17) mg/dL Creatinine (0.52-1.04) mg/dL Estimated GFR ML/MIN Glucose (74-106) mg/dL Lactic Acid 0.9 (0.4-2.0) Calcium (8.4-10.2) mg/dL Total Bilirubin (0.2-1.3) mg/dL AST (14-36) U/L ALT (0-35) U/L Alkaline Phosphatase (38-126) U/L Serum Total Protein (6.3-8.2) g/dL Albumin (3.5-5.0) g/dL Amylase (30-110) U/L Lipase (23-300) U/L Urine Color (YELLOW) Urine Appearance (CLEAR) Urine pH (5-6) Ur Specific [place] (1.005-1.025) Urine Protein (Negative) Urine Ketones (NEGATIVE) Urine Blood (0-5) Etienne/ul Urine Nitrite (NEGATIVE) Urine Bilirubin (NEGATIVE) Urine Urobilinogen (0-1) mg/dL Ur Leukocyte Esterase (NEGATIVE) Urine WBC (Auto) (0-5) /HPF Urine RBC (Auto) (0-2) /HPF U Hyaline Cast (Auto) (0-2) /LPF U Epithel Cells (Auto) (FEW) /HPF Urine Bacteria (Auto) (NEGATIVE) /HPF Urine Mucus (Auto) (NEGATIVE) /HPF Urine Culture Reflexed (NO) Urine Glucose (NEGATIVE) mg/dL - Progress Progress: improved, pain not gone completely Progress Note: 06/16/21 20:19 CAT scan of the abdomen and pelvis without contrast shows a stomach that is slightly distended with food present. nonobstructed stomach and bowel loops are present. The appendix is visualized and is normal. Counseled pt/family regarding: lab results, diagnosis, need for follow-up, rad results - Departure Departure Disposition: Home Clinical Impression: Abdominal pain, Gastroparesis Condition: Stable Critical Care Time: No Referrals: JACKMAN,JUN, SEWING MACHINE ATTACHMENT TESTER [Primary Care Provider] - Additional Instructions: Clear liquid diet only for the next 12 to 24 hours and slowly advance your diet to a soft diet. Contact your primary care physician, general surgeon and your security sergeant on Saturday, June 19, 2021 for further instructions and management. Prescriptions: Ondansetron ODT 4 MG [Zofran Odt 4 mg] 4 mg PO Q6H PRN PRN #10 tablet PRN Reason: Vomiting
[2021-06-16] MEDS ORDERED: Hydromorphone 1 mg/ml Injection IV ONE (19:05)
[2021-06-16] MEDS ORDERED: Sodium Chloride 0.9% 1000 ML 1,000 ML IV STA (19:05)
[2021-06-16] MEDS ORDERED: Zofran 4 MG/2 ML VIAL IV ONE ×2 (19:05→20:32)
[2021-06-16] MEDS ORDERED: Zofran 4 MG/2 ML VIAL ONE ×2 (19:16→20:33)
[2021-06-16] MEDS ORDERED: Sodium Chloride 0.9% 1000 ML 1,000 ML ONE (19:17)
[2021-06-16] MEDS ORDERED: Hydromorphone 1 mg/ml Injection ONE (19:17)
[2021-06-16 19:38] LABS: Absolute Neutrophil Ct (ANC) 6.17 (1.4-6.9); BASOPHIL % 0.2 % (0.0-0.4); Basophil (Absolute #) 0.02 (0-0.4); Eosinophil % 1.3 % (0.00-5.0); Eosinophil (Absolute #) 0.12 (0-0.5); Hematocrit 43.1 % (35-47); Hemoglobin 13.9 gm/dl (12.0-16.0); Lymphocyte (Absolute #) 2.51 (1.0-4.6); Lymphocytes % 26.9 % (24.0-44.0); Mean Cell Volume 92.3 fl (78-100); Mean Corpuscular Hemoglobin 29.8 pg (26-32); Mean Corpuscular Hgb Concent. 32.3 g/dl (32-36); Mean Platelet Volume 9.7 fl (7.5-11.0); Monocyte (Absolute #) 0.51 (0.0-1.3); Monocytes % 5.5 % (0.0-12.0); Neutrophil % 66.1 % (36.0-66.0); Platelet Count 340 K/mm3 (150-450); Red Blood Count 4.67 M/mm3 (4.1-5.4); Red Cell Distribution Width 13.1 % (11.5-14.0); White Blood Count 9.3 K/mm3 (4.0-10.5)
[2021-06-16 19:49] LABS: Appearance CLOUDY (CLEAR); Bacteria MANY /HPF (NEGATIVE); Bilirubin NEGATIVE (NEGATIVE); Blood NEGATIVE Ery/ul (0-5); Epithelial Cells RARE /HPF (FEW); Glucose NEGATIVE (NEGATIVE); Hyaline Casts 0-2 /LPF (0-2); Ketones NEGATIVE (NEGATIVE); Leukocyte Esterase NEGATIVE (NEGATIVE); Mucus SLIGHT /HPF (NEGATIVE); Nitrite NEGATIVE (NEGATIVE); Protein,Urine Dip NEGATIVE (Negative); Specific Gravity 1.015 (1.005-1.025); Urobilinogen NEGATIVE mg/dL (0-1)
[2021-06-16 19:53] LABS: ALBUMIN 4.4 g/dL (3.5-5.0); ALKALINE PHOSPHATASE 62 U/L (38-126); AMYLASE 59 U/L (30-110); ANION GAP 12.2 MEQ/L (5-15); BLOOD UREA NITROGEN 11 mg/dL (7-17); CHLORIDE 105 mmol/L (98-107); Carbon Dioxide 27 mmol/L (22-30); EST GLOMERULAR FILTRATION RATE > 60.0 ML/MIN; Glucose 84 mg/dL (74-106); LIPASE 39 U/L (23-300); Potassium 3.7 mmol/L (3.5-5.1); SGOT/AST 21 U/L (14-36); SGPT/ALT 17 U/L (0-35); SODIUM 140 mmol/L (137-145); Total Protein 7.2 g/dL (6.3-8.2)
--- NOTE | 2021-06-16 19:54 | XRAY ---
Indication: Abdomen pain, nausea, vomiting, diarrhea. Multiple contiguous axial images obtained through the abdomen and pelvis without contrast. Comparison: June 06, 2021. Lung bases are clear. Heart not enlarged. Stomach distended with food. Noncontrasted stomach and bowel loops appear nonobstructed again with normal appendix. Stable cholecystectomy and partial hysterectomy. No free fluid/air. Again splenomegaly today measuring 13.4 cm. Remaining liver, pancreas, spleen, adrenal glands, kidneys, ureters, bladder, and aorta are unremarkable for noncontrast exam. Impression: Again incidental splenomegaly. Remaining CT abdomen/pelvis without contrast exam continues to be negative.
[2021-06-16 20:22] VITALS: BP 128/85
[2021-06-16 20:54] VITALS: PULSE 69; O2SAT 99
== END 2021-06-16 21:01 | disposition home or self-care (01) ==
LOC: ED 18:35
DX: R10.11 Right upper quadrant pain (principal); K31.84 Gastroparesis; R11.2 Nausea with vomiting, unspecified; Z79.899 Other long term (current) drug therapy
CPT/HCPCS: 36415; 74176; 80053; 81001; 82150; 83605; 83690; 85025; 87086; 96360; 96374; 96375; 96376; 99284; J1170; J2405

== ENCOUNTER 2021-08-07 16:49 | Emergency (ER) | payer OTHER ==
--- NOTE | 2021-08-07 17:11 | ERPHSYRPT ---
- History of Present Illness Time Seen by Provider: 08/07/21 17:00 Source: patient Exam Limitations: no limitations Patient Subjective Stated Complaint: Pt states "I was doing dishes and dropped the crock pot on my left foot." Triage Nursing Assessment: Pt presented alert and oriented X 3, skin pwd Pt ambulates with a limp. Pt has bruising noted to left lateral foot and small toe. Physician History: Patient is a 30-year-old female presents to our ED with pain to the fifth digit left foot. Patient states she dropped a crockpot on her foot approximately 1 hour prior to arrival. Pain described as an ache as well localized. No radiation. Pain worse with ambulation improved with rest. Patient declined pain medication as she states she has surgery on . Symptoms are mild to moderate in intensity. Patient otherwise feels well. She voices no other complaints or concerns at this time. Method of Injury: direct blow Occurred: just prior to arrival Quality: constant Severity of Pain-Max: moderate Severity of Pain-Current: mild Lower Extremities Pain: foot: left, 4th toe: left, 5th toe: left Modifying Factors: Improves With: movement Associated Symptoms: none Allergies/Adverse Reactions: amoxicillin [Amoxicillin] Allergy (Mild, Verified 06/16/21 18:40) medication interaction with granisetron prolonged QT interval metoclopramide [From Reglan] Allergy (Verified 06/16/21 18:40) Hives Home Medications: Hydroxyzine HCl 25 mg [Atarax 25 mg] 1 tab PO DAILY PRN 06/28/20 [History] Famotidine [Pepcid] 40 mg PO BID 10/25/20 [History] Lansoprazole [Prevacid] 1 tab PO DAILY 06/16/21 [History] Hx Tetanus, Diphtheria Vaccination/Date Given: Yes Hx Influenza Vaccination/Date Given: No Hx Pneumococcal Vaccination/Date Given: No Immunizations Up to Date: Yes Travel Risk - International Travel Have you traveled outside of the country in past 3 weeks: No - Coronavirus Screening Are you exhibiting any of the following symptoms?: No Close contact with a COVID-19 positive Pt in past 14-21 Days: No - Vaccine Status Have you recieved a Covid-19 vaccination: No - Review of Systems Constitutional: No Symptoms, No Fever, No Chills Eyes: No Symptoms Ears, Nose, & Throat: No Symptoms Respiratory: No Symptoms, No Cough, No Dyspnea Cardiac: No Symptoms, No Chest Pain, No Edema, No Syncope Abdominal/Gastrointestinal: No Symptoms, No Abdominal Pain, No Nausea, No Vomiting, No Diarrhea Genitourinary Symptoms: No Symptoms, No Dysuria Musculoskeletal: No Symptoms, No Back Pain, No Neck Pain Skin: No Symptoms, No Rash Neurological: No Symptoms, No Dizziness, No Focal Weakness, No Sensory Changes Psychological: No Symptoms Endocrine: No Symptoms Hematologic/Lymphatic: No Symptoms Immunological/Allergic: No Symptoms All Other Systems: Reviewed and Negative - Past Medical History Pertinent Past Medical History: Yes Neurological History: Migraines ENT History: No Pertinent History Cardiac History: No Pertinent History Respiratory History: No Pertinent History Endocrine Medical History: No Pertinent History Musculoskeletal History: No Pertinent History GI Medical History: GERD History: No Pertinent History Psycho-Social History: No Pertinent History Female Reproductive Disorders: Abnormal Uterine Bleeding, Menstrual Problems Other Medical History: gastroporesis - Past Surgical History Past Surgical History: Yes Neuro Surgical History: No Pertinent History Cardiac: No Pertinent History Respiratory: No Pertinent History Gastrointestinal: Cholecystectomy Genitourinary: No Pertinent History Musculoskeletal: No Pertinent History Female Surgical History: Dilation & Curettage, Tubal Ligation Other Surgical History: D&C x two - Social History Smoking Status: Never smoker How long have you smoked: couple yea Exposure to second hand smoke: No Drug Use: none Patient Lives Alone: No Significant Family History: MOTHER - Female History Hx Last Menstrual Period: hysterectomy Hx Now: No - Nursing Vital Signs Nursing Vital Signs: Initial Vital Signs Temperature 98.8 F 08/07/21 16:56 Pulse Rate 90 08/07/21 16:56 Respiratory Rate 20 08/07/21 16:56 Blood Pressure 124/89 08/07/21 16:56 O2 Sat by Pulse Oximetry 99 08/07/21 16:56 Pain Scale Pain Intensity 4 - Physical Exam General Appearance: no apparent distress, alert Eyes, Ears, Nose, Throat Exam: normal ENT inspection, TMs normal, pharynx normal, moist mucous membranes Neck Exam: normal inspection, non-tender, supple Cardiovascular/Respiratory Exam: chest non-tender, normal breath sounds, regular rate/rhythm, heart sounds normal, no respiratory distress Gastrointestinal/Abdominal Exam: non-tender, guarding Back Exam: normal inspection, normal range of motion, No vertebral tenderness Hips Exam: bilateral: non-tender, normal inspection, normal range of motion, no evidence of injury Legs Exam: bilateral leg: non-tender, normal inspection, normal range of motion, no evidence of injury Knees Exam: bilateral knee: non-tender, normal inspection, normal range of motion, no evidence of injury Ankle Exam: bilateral ankle: non-tender, normal inspection, normal range of motion, no evidence of injury Foot Exam: right foot: non-tender, normal inspection, normal range of motion, no evidence of injury, left foot: pain, other (Tenderness to palpation over the left fourth and fifth digit. There is minimal swelling. No open or draining lesions. Extremities warm pink well perfused. PT DP pulse palpable. Normal active range of motion.) Neuro/Tendon Exam: normal sensation, normal motor functions Mental Status Exam: alert, oriented x 3, cooperative Skin Exam: normal color, warm, dry SpO2 Interpretation: normal SpO2: 99 O2 Delivery: Room Air - Course Nursing assessment & vital signs reviewed: Yes - Radiology Exams Foot X-ray Interpretation: Interpreted by me (No fracture dislocations. No soft tissue abnormalities.) Ordered Tests: Active Orders 24 hr Category Date Time Status FOOT (MINIMUM 3 VIEWS) Stat Exams 08/07/21 17:04 Taken - Progress Progress: improved Progress Note: Patient declined pain medication. X-ray negative for fracture dislocation. No soft tissue abnormalities. Patient received an orthopedic shoe for comfort. No indication for further work-up at this time. Will discharge home. Portions of this note were created with voice recognition technology. There may be grammatical, spelling, punctuation or sound alike errors 08/07/21 17:22 Counseled pt/family regarding: diagnosis, need for follow-up, rad results - Departure Departure Disposition: Home Clinical Impression: Contusion of toe of left foot, Contusion of foot, left Condition: Stable Critical Care Time: No Referrals: JUN JAMES NP [Primary Care Provider] - Follow up/PCP as directed Additional Instructions: Discharge/Care Plan CATARINAIAN Lee MISHA was seen on 08/07/21 in the Emergency Room. The patient was counseled regarding Diagnosis,Lab results, Imaging studies, need for follow up and when to return to the Emergency Room. Prescriptions given: Discharge Note I have spoken with the patient and/or caregivers. I have explained the patient's condition, diagnosis and treatment plan based on the information available to me at this time. I have answered the patient's and/or caregiver's questions and addressed any concerns. The patient and/or caregivers have as good understanding of the patient's diagnosis, condition and treatment plan as can be expected at this point. The vital signs have been stable. The patient's condition is stable and appropriate for discharge from the emergency department. The patient will pursue further outpatient evaluation with the primary care physician or other designated or consulting physician as outlined in the discharge instructions. The patient and/or caregivers are agreeable to this plan of care and follow-up instructions have been explained in detail. The patient and/or caregivers have received these instruction. The patient/and or caregivers are aware that any significant change in condition or worsening of symptoms should prompt an immediate return to this or the closest emergency department or call 911.
--- NOTE | 2021-08-08 08:44 | XRAY ---
Indication: Pain following injury. Comparison: None 3 nonweightbearing views left foot demonstrates tiny posterior heel spur and tiny cuboid accessory ossicle. No other bony, articular, or soft tissue abnormalities.
== END 2021-08-07 17:27 | disposition home or self-care (01) ==
LOC: ED 16:49
DX: S90.32XA Contusion of left foot, initial encounter (principal); S90.122A Contusion of left lesser toe(s) without damage to nail, initial encounter; W20.8XXA Other cause of strike by thrown, projected or falling object, initial encounter; Y93.G1 Activity, food preparation and clean up; Y92.000 Kitchen of unspecified non-institutional (private) residence as the place of occurrence of the external cause; Z79.899 Other long term (current) drug therapy
CPT/HCPCS: 73630; 99283

== ENCOUNTER 2022-12-05 06:09 | Emergency (ER) | payer OTHER ==
[2022-12-05 06:15] VITALS: BP 106/76; PULSE 84; O2SAT 100
--- NOTE | 2022-12-05 07:04 | ERPHSYRPT ---
- History of Present Illness Time Seen by Provider: 12/05/22 06:55 Source: patient Exam Limitations: no limitations Patient Subjective Stated Complaint: Lt ankle pain, tripped over the dog and missed a step on the deck. Triage Nursing Assessment: pt ambulated into ER without difficulty. Pt c/o left ankle pain. Pt tripped over her dog last night around 7pm and missed a step on the deck, resulting in a fall. Pt states "the pain is at my ankle and goes up the back of my leg". No swelling or brusing noted. Pt able to move left ankle, foot and toes without diff. Physician History: Patient here with left ankle pain after fall. Patient states that she fell last night. States that she tripped over her dog. Patient now having left medial ankle pain. No obvious deformity. Able to ambulate. Has taken ibuprofen at home. Timing/Duration: yesterday Severity: moderate Modifying Factors: Improves With: ibuprofen Associated Symptoms: denies symptoms Allergies/Adverse Reactions: amoxicillin [Amoxicillin] Allergy (Mild, Verified 12/05/22 06:22) medication interaction with granisetron prolonged QT interval metoclopramide [From Reglan] Allergy (Verified 12/05/22 06:22) Hives Home Medications: Famotidine [Pepcid] 40 mg PO BID 10/25/20 [History] Lansoprazole [Prevacid] 1 tab PO DAILY 06/16/21 [History] Bupropion HCl 150 mg Sr [Wellbutrin SR 150 MG] 150 mg PO BID 12/05/22 [History] Cefdinir 300 mg PO BID 12/05/22 [History] Esomeprazole Magnesium [Nexium] 40 mg PO DAILY 12/05/22 [History] Sucralfate 1 gm [Carafate 1 GM] 1 gm PO BID 12/05/22 [History] Hx Tetanus, Diphtheria Vaccination/Date Given: Yes Hx Influenza Vaccination/Date Given: No Hx Pneumococcal Vaccination/Date Given: No Travel Risk - International Travel Have you traveled outside of the country in past 3 weeks: No - Coronavirus Screening Are you exhibiting any of the following symptoms?: No Close contact with a COVID-19 positive Pt in past 14-21 Days: No - Vaccine Status Have you recieved a Covid-19 vaccination: Yes Hand Buffer: Pfizer - Vaccination Dates Date of 2cond Vaccination (if applicable): n/a - Review of Systems Constitutional: No Fever, No Chills Eyes: No Symptoms Ears, Nose, & Throat: No Symptoms Respiratory: No Cough, No Dyspnea Cardiac: No Chest Pain, No Edema, No Syncope Abdominal/Gastrointestinal: No Abdominal Pain, No Nausea, No Vomiting, No Diarrhea Genitourinary Symptoms: No Dysuria Musculoskeletal: Injury, No Back Pain, No Neck Pain Skin: No Rash Neurological: No Dizziness, No Focal Weakness, No Sensory Changes Psychological: No Symptoms Endocrine: No Symptoms All Other Systems: Reviewed and Negative - Past Medical History Pertinent Past Medical History: Yes Neurological History: Migraines ENT History: No Pertinent History Cardiac History: No Pertinent History Respiratory History: No Pertinent History Endocrine Medical History: No Pertinent History Musculoskeletal History: No Pertinent History GI Medical History: GERD, Gallbladder Disease History: No Pertinent History Psycho-Social History: No Pertinent History Female Reproductive Disorders: Abnormal Uterine Bleeding, Menstrual Problems Other Medical History: gastroporesis - Past Surgical History Past Surgical History: Yes Neuro Surgical History: No Pertinent History Cardiac: No Pertinent History Respiratory: No Pertinent History Gastrointestinal: Cholecystectomy Genitourinary: No Pertinent History Musculoskeletal: No Pertinent History Female Surgical History: Hysterectomy, Dilation & Curettage, Tubal Ligation Other Surgical History: D&C x two - Social History Smoking Status: Former smoker How long have you smoked: couple yea Exposure to second hand smoke: Yes Drug Use: none Patient Lives Alone: No Significant Family History: MOTHER - Female History Hx Now: No - Nursing Vital Signs Nursing Vital Signs: Initial Vital Signs Temperature 97.4 F 12/05/22 06:14 Pulse Rate 84 12/05/22 06:14 Respiratory Rate 16 12/05/22 06:14 Blood Pressure 106/76 12/05/22 06:14 O2 Sat by Pulse Oximetry 100 12/05/22 06:14 Pain Scale Pain Intensity 4 - Physical Exam General Appearance: no apparent distress, alert Eye Exam: PERRL/EOMI, eyes nml inspection Ears, Nose, Throat Exam: normal ENT inspection, TMs normal, pharynx normal, moist mucous membranes Neck Exam: normal inspection, non-tender, supple, full range of motion Respiratory Exam: normal breath sounds, lungs clear, No respiratory distress Cardiovascular Exam: regular rate/rhythm, normal heart sounds, normal peripheral pulses Gastrointestinal/Abdomen Exam: soft, normal bowel sounds, No tenderness, No mass Back Exam: normal inspection, normal range of motion, No CVA tenderness, No vertebral tenderness Extremity Exam: normal inspection, normal range of motion, pelvis stable, other (Medial left ankle tenderness without deformity. No swelling. Full range of motion, neurovascularly intact.) Neurologic Exam: alert, oriented x 3, cooperative, normal mood/affect, nml cerebellar function, nml station & gait, sensation nml, No motor deficits Skin Exam: normal color, warm, dry, No rash Lymphatic Exam: No adenopathy SpO2: 100 - Course Nursing assessment & vital signs reviewed: Yes Ordered Tests: Active Orders 24 hr Category Date Time Status ANKLE (3 VIEWS) Stat Exams 12/05/22 06:33 Completed FOOT (MINIMUM 3 VIEWS) Stat Exams 12/05/22 06:32 Completed LOWER LEG Stat Exams 12/05/22 06:33 Completed - Progress Progress: improved Progress Note: 12/05/22 06:59 We will obtain x-ray looking for any fracture or abnormalities. 12/05/22 09:18 X-ray demonstrates no fracture - my read Patient will need repeat XRs in one week, if pain continues. Return here or see PCP. Patient was wrapped in an Denzel wrap. Follow-up with PCP. Return here for new or changing symptoms. Counseled pt/family regarding: diagnosis, rad results Medical Desision Making - Discussion of managment Agreed on:: Treatment plan - Diagnostic Testing Diagnostic test were ordered, analyzed, and reviewed by me: Yes Radiological Interpretation: Interpreted by me - Risk of complications Minimal Risk: Minimal risk of morbidity - Departure Departure Disposition: Home Clinical Impression: Left ankle sprain Condition: Stable Critical Care Time: No Referrals: BENI PANCHAL MD [Primary Care Provider] - Follow up/PCP as directed Instructions: Ankle Sprain (DC)
--- NOTE | 2022-12-05 08:55 | XRAY ---
Indication: Pain following fall. Comparison: None 3 view left ankle demonstrates tiny posterior heel spur. No other bony, articular, or soft tissue abnormalities.
--- NOTE | 2022-12-05 08:55 | XRAY ---
Indication: Pain following fall. Comparison: None 2 view left lower leg obtained. No bony, articular, or soft tissue abnormalities.
--- NOTE | 2022-12-05 08:57 | XRAY ---
Indication: Pain following fall. Comparison: August 07, 2021 3 nonweightbearing views left foot demonstrates stable tiny posterior heel spur and tiny cuboid accessory ossicle. No new/acute bony, articular, or soft tissue abnormalities.
== END 2022-12-05 09:19 | disposition home or self-care (01) ==
LOC: ED 06:09
DX: S93.402A Sprain of unspecified ligament of left ankle, initial encounter (principal); W01.0XXA Fall on same level from slipping, tripping and stumbling without subsequent striking against object, initial encounter; Z79.899 Other long term (current) drug therapy
CPT/HCPCS: 73590; 73610; 73630; 99283